=== PATIENT | male | born 1980 | race Caucasian/White ===

== ENCOUNTER 2024-07-11 12:26 | Outpatient (CLI) | payer BC, SELFPAY ==
[2024-07-11 12:54] LABS: Basophils Absolute Auto 0.07 K/uL (0.00-0.30); Basophils Percent Auto 1.3 % (0.0-3.0); Eosinophils Absolute Auto 0.25 K/uL (0.00-0.50); Eosinophils Percent Auto 4.6 % (0.0-7.0); Hematocrit 45.4 % (37.0-53.0); Hemoglobin* 15.4 gm/dL (13.5-17.5); Lymphocytes Absolute Auto 1.62 K/uL (0.90-2.90); Lymphocytes Percent Auto 29.9 % (20-44); Mean Corpuscular HGB Conc 34 gm/dL (32-36); Mean Corpuscular Hemoglobin 32 pg (26-34); Mean Corpuscular Volume 94 fL (80-100); Monocytes Percent Auto 8.5 % (0.0-11.0); Neutrophils Absolute Auto 3.02 K/uL (1.7-7.0); Neutrophils Percent Auto 55.7 % (42.0-72.0); Platelet Count* 219 K/uL (140-440); RDW Coefficient of Variation % 12.3 % (11.5-15.5); Red Blood Count 4.85 m/uL (4.30-5.90); Slide Review Reflex No; White Blood Count* 5.42 K/uL (4.50-11.00)
[2024-07-11 13:11] LABS: Albumin* 4.4 g/dL (3.3-5.0)
[2024-07-11 13:13] LABS: Bilirubin Direct* 0.1 mg/dL (0.0-0.5); Bilirubin Total* 0.5 mg/dL (0.1-1.5); Total Protein* 6.8 g/dL (6.0-8.3)
[2024-07-11 13:14] LABS: Alanine Aminotransferase* 18 U/L (4-50); Alkaline Phosphatase* 71 U/L (40-150); Aspartate Amino Transferase* 24 U/L (12-35)
[2024-07-11 13:45] LABS: PSA Screen* 0.51 ng/mL (0.10-4.00)
== END 2024-07-11 12:27 | disposition home or self-care (01) ==
PROVIDERS: PCP Family Medicine; Visit Provider Urology
DX: E29.1 Testicular hypofunction (principal)
CPT/HCPCS: 36415; 80076; 85025; G0103

== ENCOUNTER 2024-07-21 14:21 | Outpatient (CLI) | payer BC, SELFPAY ==
[2024-07-21 16:02] LABS: Vitamin D 25 Hydroxy* 33 ng/mL (30-80)
[2024-07-21 16:35] LABS: Vitamin B12* 302 pg/mL (243-894)
== END 2024-07-21 14:22 | disposition home or self-care (01) ==
PROVIDERS: PCP Family Medicine; Visit Provider Family Medicine
DX: E53.8 Deficiency of other specified B group vitamins (principal)
CPT/HCPCS: 36415; 82306; 82607

== ENCOUNTER 2024-08-04 11:05 | Outpatient (CLI) | payer BC, SELFPAY ==
[2024-08-06 09:46] LABS: Sex Hormone Binding Globulin 25 nmol/L (17-56); Testosterone, Adult Male 131 ng/dL (300-890); Testosterone, Free Calculation 26 pg/mL (47-244)
== END 2024-08-04 11:06 | disposition home or self-care (01) ==
PROVIDERS: PCP Family Medicine; Visit Provider Urology
DX: E29.1 Testicular hypofunction (principal)
CPT/HCPCS: 36415; 84270; 84402; 84403

== ENCOUNTER 2024-12-21 10:07 | Outpatient (CLI) | payer BC, SELFPAY ==
--- NOTE | 2024-12-21 10:15 | CRLHL7_ITS ---
For Patients: As a result of the Century Cures Act, medical imaging exams and procedure reports are released immediately into your electronic medical record. You may view this report before your referring provider. If you have questions, please contact your health care provider. INDICATION: Dysphagia with swallowing solids HX OF HATIAL HERNIA TECHNIQUE: Modified barium swallow. Fluoroscopic time 54 seconds. FINDINGS/IMPRESSION: Anatomical structures are normal. Swallowing mechanism appears within normal limits. No episodes of penetration or aspiration. No significant findings. Dictated by Elijah Lanza MD @ 12/21/2024 10:57:57 AM (Electronically Signed)
--- NOTE | 2024-12-21 14:36 | SLP.MBS ---
NUCLEAR WASTE MANAGEMENT ENGINEER Modified Barium Swallow NUCLEAR WASTE MANAGEMENT ENGINEER Modified Barium Swallow Eval Start: 12/21/24 08:30 Text: Status: Active Freq: Protocol: Document 12/21/24 08:30 ALIREZA (Rec: 12/21/24 08:38 ALIREZA [id number]) E-signed By LEO Dawson Modified Barium Swallow Evaluation Evaluation Reason for Referral Sore throat with eating solids but not with liquids. Medical Diagnosis R13.10 dysphagia, unspecified Treatment Diagnosis Dysphagia Date of Order 12/09/24 Onset of Patient's 12/09/24 Problem Pertinent Medical Jan has a history of GERD and hiatal hernia that was History diagnosed in 2012. He had a CT of the soft tissue of the neck in September of 2023 which was WNL. Hearing Status WNL Vision Status WNL Subjective/Pain In early December, Jan developed a persistent sore throat Comment that he feels was based on a few distinct incidents: 1) food lodged in throat, 2) singing and had sudden pain. Assessment/ Jan is a 44-year-old male with complaints of throat Impressions pain when swallowing. He has a history of GERD and hiatal hernia. A video swallow study was completed per provider orders. Under fluoroscopy, patient presents with a functional oropharyngeal swallow. Oral phase functional with occasional double swallow needed to transport entire bolus but there was no oral residue after second swallow. Pharyngeal phase is also functional but noted partial anterior laryngeal movement and incomplete epiglottic inversion with one instance of minimal flash penetration. No aspiration. Recommend a Regular diet with thin liquids. Safe swallow strategies include upright for all meals, small bites and sips. Reflux precautions include stay upright for one hour after meals, smaller more frequent meals, eat last meal three hours before bedtime, elevate head of bed 4-6 inches. Despite a functional swallow, did offer Jan pharyngeal exercises that he could complete to focus on improving BOT retraction, anterior laryngeal movement and epiglottic inversion. His current swallow does not account for the pain he continues to feel while he swallows, clears his throat or coughs and would recommend an ENT consult to further assess these issues. Goals/Functional Jan will verbalize understanding of today's results Outcomes and recommendations. Goal met today. Mod Barium Swallow-Lat View Textures Lateral View Food Thin: IDDSI Level 0,Pureed,Regular Presentation Oral Phase Labial Closure No Impairment (WFL) Mastication Rotary No Impairment (WFL) Chew A/P Lingual No Impairment (WFL) Propulsion Spills Residue Clearing No Impairment (WFL) Pharyngeal Phase Swallow Response No Impairment (WFL) Delay Base of Tongue Minimal Impairment Epiglottic Coverage Mild Impairment Laryngeal Elevation Mild Impairment Vallecular Retention No Impairment (WFL) Clearing Pharyn. Wall Residue No Impairment (WFL) Clearing Piriform Sinus No Impairment (WFL) Retention Other Pharyngeal Incomplete epiglottic inversion causing minimal Phase Observation vallecular residue that was cleared after a second swallow. Mod Barium Swallow-A/P View Performed Mod Barium Swallow A Performed /P View Test Textures A/P View Food Thin: IDDSI Level 0 Presentation Observations A/P View Esophogeal No Impairment (WFL) Function Mod Barium Swallow Impressions Summary and Impressions Oral Phase No Impairment (WFL) Impression Pharyngeal Phase Minimal Impairment Impression Esophogeal Phase No Impairment (WFL) Impression Barium Swallow Recommendations Diet Dietary Regular diet with thin liquids. Recommendations Comments Treatment/Strategies Treatment Base of Tongue Exercises,Pharyngeal Resistive Exer Recommendation Treatment Jan was given exercises to complete if he chooses. Recommendation Comments Strategy/Precaution Sitting Upright (90 deg),Small Bites and Sips,Alternate Recommend Liquids/Solids Strategy/Precaution Reflux precautions include stay upright for one hour Recommend Comments after meals, smaller more frequent meals, eat last meal three hours before bedtime, elevate head of bed 4-6 inches. Referrals/Other Recommended ENT Consult Referrals Modified Barium Swallow Education Education Topics Teaching Recipient Patient Teaching Methods Verbal Response to Teaching Verbalize Understanding Therapist Signature/ Vahe Lowe MS [facility]-NUCLEAR WASTE MANAGEMENT ENGINEER #[id number] License Number Speech/Language Pathology Billing Units Billing Units Eval Swallow Motion 1 Fluoro
== END 2024-12-21 10:08 | disposition home or self-care (01) ==
PROVIDERS: PCP Family Medicine; Visit Provider Family Medicine
DX: R13.10 Dysphagia, unspecified (principal)
CPT/HCPCS: 74230; 92610; 92611

== ENCOUNTER 2024-12-26 09:29 | Outpatient (CLI) | payer BC, SELFPAY ==
--- OUTSIDE RECORDS SUMMARY | 2024-12-27 00:37 | XMS_ITS | Clinical Summary ---
Author Organization [facility] Address [address] [place] [id number] Care Team Providers Care Founder And Chief Technical Officer Name Role Phone Sindy Coates MD Primary Care Pr ovider Source Comments You are receiving this document as you are listed as the primary care provider,follow-up provider, or the patient has been referred to you for consultation.This is in compliance with the Medicare andMedicaid EHR Incentive Program,which states Providers who transition their patient to another setting of careor provider of care or refers their patient to another provider of care shouldprovide summary care record for each transition of care or referral. [employer] Allergies Active Allergy Reactions Criticality Noted Date Comments Penicillin V Other, see comments 02/08/2019 Pt had as a child, not sure of reaction, not sure if he has had it since Penicillins Unknown,Other, see comments 05/04/2009 Childhood reaction Other reaction(s): Other (see comments) Childhood reaction Other reaction(s): Other (see comments) Childhood reaction Other reaction(s): Other (see comments) Childhood reaction Other reaction(s): Other (see comments) Pt had as a child, not sure of reaction, not sure if he has had it since Childhood reaction Other reaction(s): Other (see comments) Childhood reaction Other reaction(s): Other (see comments) Medications sildenafil (REVATIO) 20 MG tablet Take 1 Tablet by mouth three times a day. 90 Tablet 5 05/09/2021 Active NIFEdipine CC (ADALATCC) 30 MG 24 hour release tablet Take 1 Tablet by mouth daily. 30 Tablet 3 06/03/2021 Active sildenafil (REVATIO) 20 MG tablet Take 1 Tablet by mouth daily. 10 Tablet 06/03/2021 Active Active Problems Problem Noted Date Diagnosed Date Vasospasm of peripheral artery 01/04/2021 Open wound of right index finger 12/14/2020 Open wound of right middle finger 12/14/2020 Stiffness of finger joint of right hand 12/15/19 21 Ischemia of digits of hand 11/22/2020 DNS (deviated nasal septum) 03/02/2018 Overview (03/02/2018): Added automatically from request for surgery [id number] Anxiety disorder Depression Immunizations Immunization Administration Dates Next Due Flu Vac (3+ yrs) 08/12/2017,04/26/2015, 3 [id number] 06/08/2009 Influenza [id number] 06/08/2009 Influenza IIV4 (Quadrivalent) 0.5mL ([id number]) 03/07,04/26/2015,05/17/2014 Influenza, Unspecified Formulation 04/26/2015 Moderna Monovalent 12+ 11/08/2020,10/03/2020 Td (7+ yrs) 02/02/2010 Family History Medical History Relation Name Comments Diabetes Mother Heart Attack Maternal Grandfather Cancer, Prostate Paternal Grandfather Cancer, Ovary Paternal Grandmother Relation Name Status Comments Mother Maternal Grandfather Paternal Grandfather Paternal Grandmother Social History Tobacco Use Types Packs/Day Years Used Date Smoking Tobacco: Never Smokeless Tobacco: Never Alcohol Use Standard Drinks/Week Comments Not Currently 0 (1 standard drink = 0.6 oz pur e alcohol) Sex and Gender Information Value Date Recorded Sex Assigned at Not on file Legal Sex Male 5:53 AM CDT Gender Identity Not on file Sexual Orientation Not on file Last Filed Vital Signs Vital Sign Reading Time Taken Comments Blood Pressure 120/73 06/03/2021 8:23 AM GREEN BUILDING ENGINEER Pulse 54 06/03/2021 8:23 AM GREEN BUILDING ENGINEER Temperature 36.7 C (98 F) 08/31/2022 12:18 PM GREEN BUILDING ENGINEER Respiratory Rate 20 11/27/2020 2:29 PM CDT Oxygen Saturation 100% 12/14/2020 1:18 PM CDT Inhaled Oxygen Concentration - - Weight 81.6 kg (180 lb) 08/31/2022 12:18 PM GREEN BUILDING ENGINEER Height 185.4 cm (6' 1) 08/31/2022 12:18 PM GREEN BUILDING ENGINEER Body Mass Index 23.75 08/31/2022 12:18 PM GREEN BUILDING ENGINEER Plan of Treatment Health Maintenance Due Date Last Done Comments HIV Screening (Preventive Services) 1996 Adult Preventive Visit 02/12/1998 HepB Vaccine (1) 02/12/1999 Cholesterol 02/12/2015 COVID-19 Vaccine ( season) 2024 06/23/2022, 05/27/2021, 11/08/2020, Additional history exists Influenza Vaccine (Season Ended) 2025 06/23/2022, 03/27/2020, 08/12/2017, Additional history exists Zoster/Shingles Vaccine (1 of 2) 02/12/2030 DTaP/Tdap/Td Vaccine (2 - Tdap) 12/18/2031 12/17/2021, 02/02/2010 Hep C Screening (Preventive Services) Completed 12/31/2020 HPV Vaccine Aged Out No longer eligi ble based on patient's age to complete this topic HepA Vaccine Aged Out No longer eligi ble based on patient's age to complete this topic Hib Vaccine Aged Out No longer eligi ble based on patient's age to complete this topic IPV (Polio) Vaccine Aged Out No longe r eligible based on patient's age to complete this topic MCV4 Vaccine Aged Out No longer eligi ble based on patient's age to complete this topic Meningococcal B Vaccine Aged Out No l onger eligible based on patient's age to complete this topic Pneumococcal Vaccine Aged Out No long er eligible based on patient's age to complete this topic Medical Devices Implanted Type Area Break Up Worker Device Identifier Shelf Expiration Date Model / Serial / Lot Costal Cartilage Implanted:Qty: 1 on 02/08/2019 by Erik Avilez MD at [facility] BIOLOGIC N/A: NOSE 04/20/2022 1216-25 / [id number] / [id number] - [id number] Implanted:Qty: 1 on 02/08/2019 by Erik Avilez MD at [facility] DEVICE N/A: NOSE [employer] 10/12/2023 -[id number] / / [id number] Procedures Procedure Name Priority Date/Time Associated Diagnosis Comments HEPATITIS C ANTIBODY, WITH REFLEX (ANTI-HCV) Routine 12/31/2020 11:25 AM CDT Raynaud's disease with gangrene (HRC) from Last 3 Months or Most Recently Relevant to Health Maintenance Results * Hepatitis C Antibody, with Reflex (12/31/2020 11:25 AM CDT) Hepatitis C Antibody Negative (Non Reactive) Negative (Non Reactive) 12/31/2020 2:40 PM CDT [facility] Comment:Antibodies to HCV no t detected. Does not exclude the possiblity of exposure to HCV. Blood Venipuncture / Unknown 12/31/2020 11:25 AM CDT 12/31/2020 11:25 AM CDT us Rahul Beltrán MD LAB_[email or web address] Final Result Performing Organization Address City/State/[facility] Co de Phone Number [facility] [address] [phone] from Last 3 Months or Most Recently Relevant to Health Maintenance Advance Directives * Full Code (Latest Code Status on File) Date Activated Date Inactivated Comments 11/22/2020 10:13 PM 11/27/2020 7:01 PM Care Teams Founder And Chief Technical Officer Relationship Specialty Start Date End Date Sindy Coates MD [address] [place] [address] PCP - General 03/06/16
--- OUTSIDE RECORDS SUMMARY | 2024-12-27 00:37 | XMS_ITS | Clinical Summary ---
Author Organization [facility] Address [address] [place] [address] Care Team Providers Care Electronic System Engineer Name Role Phone Nina Winters DO Primary Care Provider [phone] Allergies Active Allergy Reactions Criticality Noted Date Comments Animal Dander Other - Describe In Comment Field 06/18/2009 Congestion Penicillins Other - Describe In Comment Field,*Unknown - Childhood Rxn 05/04/2009 Pt had as a child, not sure of reaction, not sure if he has had it since Medications desvenlafaxine succinate (PRISTIQ) 50 mg Extended-Release tabletIndication s:Generalized anxiety disorder,Persist ent depressive disorder,Chronic generalized pain TAKE 1 TABLET (50 MG) BY MOUTH ONCE DAILY. 90 Tablet 3 4 Active clomiPHENE citrate (Clomid) 50 mg tablet Take 50 mg by mouth once daily. Active cetirizine (ZYRTEC) 10 mg tabletIndication s:Pruritus Take 1 Tablet (10 mg) by mouth once daily. 90 Tablet 3 5 Active pantoprazole 40 mg delayed-release tabletIndication s:Chronic GERD Take 1 Tablet (40 mg) by mouth once daily. 90 Tablet 3 5 10/21/19 26 Active montelukast 10 mg tabletIndication s:Chronic allergic rhinitis Take 1 Tablet (10 mg) by mouth at bedtime. 90 Tablet 3 5 Active hydrocortisone 2.5 % creamIndications :Contact dermatitis, unspecified contact dermatitis type, unspecified trigger Apply topically to affected area(s) 2 times daily if needed for Itching. 453.6 g 5 Active triamcinolone (55 mcg each actuation) nasal (Nasacort) 55 mcg nasal sprayIndications :Nasal congestion,Nasal turbinate hypertrophy Inhale 2 Sprays in both nostrils once daily. 16.9 mL 5 Active desvenlafaxine succinate 25 mg extended release tabletIndication s:Generalized anxiety disorder Take 1 Tablet (25 mg) by mouth once daily. Do not crush or chew. To be taken with 50 mg tablet to total 75 mg. 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 and with good or fair insight 12/19/2021 SVT (supraventricular tachycardia) 09/27/2021 Complication of procedure 04/09/2021 POTS (postural orthostatic tachycardia syndrome) 04/09/2021 Vasospasm of peripheral artery 01/04/2021 Open wound of right index finger 12/14/2020 Open wound of right middle finger 12/14/2020 Stiffness of finger joint of right hand 12/15/19 21 Ischemia of digits of hand 11/22/2020 Essential tremor 12/11/2019 Elevated serum creatinine 06/23/2018 DNS (deviated nasal septum) 03/02/2018 Overview (03/27/2020): Overview: Added automatically from request for surgery [id number] Persistent depressive disorder 01/14/2018 Somatic symptom disorder 12/31/2017 Chronic insomnia 09/15/2017 Generalized anxiety disorder : Illness anxiety and body vigilance 09/15/2017 Low testosterone 11/24/2016 Obstructive sleep apnea syndrome 11/19/2016 Overview (11/19/2016): On CPAP Osteoarthritis of right knee, medial compartment 10/06/2016 GERD (gastroesophageal reflux disease) 3 Overview (09/28/2024): EGD 03/2013 normal EGD 09/2024 esophagitis with ulcer S/P right knee arthroscopic partial medial menisectomy of 35% by Dr. Krys Garcia on 2012 02/23/2012 Panic disorder with agoraphobia 01/16/2010 WPW (Reucn-Oyfwkgysq-Wonar syndrome) 05/31/2008 Overview (01/31/2019): EP study 08/07/14 shows no accessory pathway. 1. Ucsfb-Zxwoqnnip-Xhdfx syndrome with bidirectional conduction over an anterolateral accessory pathway with radiofrequency ablation performed initially in 1993, and then once again in 1996. He subsequently was placed on flecainide until recently as described above. 2. Diagnostic electrophysiology study 08/07/2014 showing no evidence for an accessory pathway, dual AV lydia physiology, or an inducible arrhythmia despite high-dose isoproterenol and aggressive induction protocol. 1&[address] Douglass. Patient reports Dr. Enrique told him no follow up was necessary unless he develops a problem. History of Sinus Bradycardia with 1st degree AV block 05/29/2008 Resolved Problems Problem Noted Date Diagnosed Date Resolved Date Raynaud's disease with gangrene 09/27/2021 08/04/2023 Generalized anxiety disorder 12/29/2017 11/21/2021 Major depressive disorder, r ecurrent, moderate 12/15/2017 12/19/2021 Acute meniscal tear, medial 02/03/2012 05/17/2014 Knee pain, right 02/02/2012 05/17/2014 Rule out Obsessive-Compulsive Disorder 10/31/2008 12/19/2021 Recur Major Depre, Part Remis 10/19/2008 07/07/2014 Major depression, recurrent 06/02/2008 10/31/2008 Episodic mood disorder 05/09/200806/02 Encounters Date Type Department Care Team Description 12/26/2024 2:10 PM CDT Office Visit [facility] [address] [place] [address] Nina Winters, DO Follow Up (Throat, swallow test results); Medication Management 12/26/2024 Travel 12/09/2024 11:25 AM CDT Office Visit [facility] [address] [place] [address] Nina Winters, DO Throat Problem (Sore throat/felt happened after eating - feels sensation when eating, not drinking) 12/09/2024 Travel 11/07/2024 2:10 PM CDT Office Visit [facility] [address] [place] [address] Nina Winters, Follow Up; Derm Problem (Rashes continue to come up on/off - eczema? ); Foot Problem (L top of foot - burning pain/sensation) 11/07/2024 Travel 10/11/2024 3:00 PM CDT Office Visit [facility] [address] [place] [address] Nina Winters, DO Medication Management (Review); Chest Pain/problem (R pectoral pain x2-3 days) 10/10/2024 Travel 10/04/2024 Orders Only [facility] [address] [place] [address] Nina Winters, DO 1 scan: (1-Ord) NFLD-EKG-09/23/24 from Last 3 Months Immunizations Immunization Administration Dates Next Due COVID-19 vaccine (Moderna 100mcg/0.5mL) SHARLENE PATRICK 11/08/2020,10/03/2020 Influenza A (H1N1), Inactiva colin (Age >=3 Years) 06/08/2009 Influenza Virus, Unspecified 08/12/2017,04/26/20 15,04/26/2015 Influenza, IIV3 (Age >=3 years) 04/26/2015,07/15 Influenza, IIV4 06/16/2023, 2,03/27/2020,2014,05/17/2014 Td (Age >=7 Years) 02/02/2010 Tdap 12/17/2021 Family History Medical History Relation Name Comments Coronary artery disease Father gloria GI Disease Father gloria diverticulosis Heart Disease Father gloria age 60 Hyperlipidemia Father gloria Allergies Mother mom Anxiety disorder Mother mom Asthma Mother mom Diabetes Mother mom Hyperlipidemia Mother mom Hypertension Mother mom Psychiatric illness Mother mom depressi on and anxiety Lupus Paternal Grandmother stef Hypertension Sister 1 joby p OCD Sister 1 joby p Thyroid Disease Sister 1 joby p Anxiety disorder Sister 2 joby Depression Sister 2 joby OCD Sister 2 joby Relation Name Status Comments Father gloria Alive Mother mom Alive Paternal Grandmother stef Alive Sister 1 joby p Alive Sister 2 joby Other Social History Tobacco Use Types Packs/Day Years Used Date Smoking Tobacco: Never Passive Smoke Exposure: Never Smokeless Tobacco: Never Tobacco Cessation:Counseling Given: Not Answered Alcohol Use Standard Drinks/Week Comments No 0 (1 standard drink = 0.6 oz pur e alcohol) PHQ-2 Answer Date Recorded PHQ-2 TOTAL SCORE 2 12/26/2024 Social Connections Answer Date Recorded Do you often feel lonely or isolated from those around you? 0 12/26/2024 Alcohol Use Answer Date Recorded How often do you have a drink containing alcohol ? 0 11/21/2021 Average Number of Drinks Not on file 022 Frequency of Binge Drinking Not on file 11/03 Financial Resource Strain Answer Date R ecorded Difficulty of Paying Living Expenses 3 12/26/2024 Difficulty of Paying Living Expenses Not on file 12/26/2024 Food Insecurity Answer Date Recorded Do you worry your food will run out before you are able to buy more? 1 12/26/2024 Transportation Needs Answer Date Record ed Does lack of transportation keep you from medica l appointments? 1 12/26/2024 Does lack of transportation keep you from work, meetings or getting things that you need? 1 12/26/2024 Housing Stability Answer Date Recorded What is your housing situation today? 1 12/26/2024 Utilities Answer Date Recorded Do you have trouble paying f or utilities (for example, heat, electricity, water, phone)? 1 12/26/2024 Education Answer Date Recorded What is the highest level of school you have completed or the highest degree you have received? Bachelor's degree (e.g., BA, AB, BS) 11/21/2021 Sex and Gender Information Value Date Recorded Sex Assigned at Not on file Legal Sex Male 5:24 AM CASE PLANNER Gender Identity Not on file Sexual Orientation Not on file Occupation Industry Job Start Date Job End Date Unemployed Not on file Not on file Not on file Obstetrics History Last Filed Vital Signs Vital Sign Reading Time Taken Comments Blood Pressure 121/80 12/26/2024 2:16 PM CDT Pulse 76 12/26/2024 2:16 PM CDT Temperature 37.2 C (99 F) 08/02/2024 1:53 PM CASE PLANNER Respiratory Rate 18 08/02/2024 1:53 PM CASE PLANNER Oxygen Saturation 97% 12/26/2024 2:16 PM CDT Inhaled Oxygen Concentration - - Weight 88.9 kg (196 lb) 12/26/2024 2:16 PM CDT Height 186.5 cm (6' 1.43) 05/09/2024 2:04 PM CS T Body Mass Index 25.56 05/09/2024 2:04 PM CASE PLANNER Plan of Treatment Upcoming Encounters Date Type Department Care Team (Late st Contact Info) Description 01/23/2025 2:10 PM CDT Office Visit [facility] [address] [place] [address] Nina Winters Stefani, DO [address] [place] [address] Health Maintenance Due Date Last Done Comments Hepatitis B series for 19+ ( 1 of 3 - 19+ 3-dose series) 02/12/1999 Pneumococcal series for age 6-49 (1 of 2 - PCV) 02/12/1999 Influenza Vaccine (Season Ended) 2025 06/16/2023, 06/23/2022, 03/27/2020, Additional history exists BMI (ht and wt on same day) for age 18+ 05/09/2025 05/09/2024, 09/09/2023, 09/10/2022, Additional history exists Lipids for age 35-44 09/10/2025 09/10/2020, 01/31/2019, 11/19/2016 Depression screening for age 12+ 12/26/2025 12/26/2024, 10/11/2024, 09/13/2024, Additional history exists Colonoscopy through age 75 09/21/2029 09/21/2024 Tetanus booster 12/18/2031 12/17/2021, 02/02/2010 HIV for age 15-65 Completed 05/17/2014 Hepatitis C screening for ag e 18-79 Completed 05/26/2014 Tdap Completed 12/17/2021 COVID-19 vaccine series Completed 06/06/20 24, 06/16/2023, 06/23/2022, Additional history exists Procedures Procedure Name Priority Date/Time Associated Diagnosis Comments EKG 12 LEAD Routine 10/04/2024 2:12 PM CDT Mid sternal chest pain COLONOSCOPY SCREENING Routine 09/21/2024 12:00 AM CDT Screening for colon cancer LIPID PANEL W REFLEX MEASURED LDL Routine 09/10/2020 3:28 PM CASE PLANNER Lipid screening ANTI HCV Routine 05/26/2014 11:54 AM CASE PLANNER Hypersomnia, unspecified Anxiety state, unspecified Headache(784.0) Dizziness and giddiness Disturbance of skin sensation ANTI HIV 1/2 Routine 05/17/2014 3:24 PM CASE PLANNER Paresthesias from Last 3 Months or Most Recently Relevant to Health Maintenance Results * EKG 12 LEAD (10/04/2024 2:12 PM CDT) us Nina Stefani Shaqra DO EKG ORD Final Result * COLONOSCOPY SCREENING (09/21/2024 12:00 AM CDT) us Nina Stefani Shaqra DO GI PROCEDURE ORD Final Result * LIPID PANEL W REFLEX MEASURED LDL (09/10/2020 3:28 PM CASE PLANNER) CHOLESTEROL,TOTAL 177 100 - 199 mg/dL 09/10/2020 8:48 PM CASE PLANNER [facility] TRIGLYCERIDES 103 <150 mg/dL 09/10/2020 8:48 PM CASE PLANNER [facility] HDL CHOLESTEROL 52 >40 mg/dL 8:48 PM CASE PLANNER [facility] NON-HDL CHOLESTEROL 125 <145 mg/dl 09/10/2020 8:48 PM CASE PLANNER [facility] CHOL/HDL RATIO 3.40 <4.50 09/10/2020 8:48 PM CASE PLANNER [facility] LDL CHOLESTEROL 104 <=130 mg/dL 09/10/2020 8:48 PM CASE PLANNER [facility] PROVIDER ORDERED STATUS RANDOM 09/10/2020 8:48 PM CASE PLANNER [facility] Blood BLOOD SPECIMEN / Unknown Venipuncture / Unknown 09/10/2020 3:28 PM CASE PLANNER 09/10/2020 3:28 PM CASE PLANNER Osbaldo Degroot MD CHEMISTRY Final Resu lt [facility] [address] [place] [address], [place] * ANTI HCV (05/26/2014 11:54 AM CASE PLANNER) HEPATITIS C ANTIBODY Non-Reacti ve Non-Reacti ve 05/26/2014 5:00 PM CASE PLANNER [facility] Blood specimen (specimen) BLOOD SPECIMEN / Unknown Venipuncture / Unknown 05/26/2014 11:54 AM CASE PLANNER 05/26/2014 11:54 AM CASE PLANNER Narrative [facility] - 05/26/2014 5:00 PM CASE PLANNER Antibodies to HCV not detected; does not exclude the possibility of exposure to HCV. Jazmine Restrepo MD SEND OUTS Final Result [facility] [address] [place] [address], [place] * ANTI HIV 1/2 (05/17/2014 3:24 PM CASE PLANNER) HIV-1/HIV-2 ANTIBODY Non-Reacti ve Non-Reacti ve 05/17/2014 7:08 PM CASE PLANNER [facility] Blood specimen (specimen) BLOOD SPECIMEN / Unknown Venipuncture / Unknown 05/17/2014 3:24 PM CASE PLANNER 05/17/2014 3:24 PM CASE PLANNER Narrative [facility] - 05/17/2014 7:08 PM CASE PLANNER HIV-1 p24 and HIV-1/HIV-2 Ab not detected us Leanne Garrett MD SEND OUTS Final Re sult [facility] [address] [place] [address], [place] from Last 3 Months or Most Recently Relevant to Health Maintenance Insurance [facility] Advance Directives * Full Code (Latest Code Status on File) Date Activated Date Inactivated Comments 08/07/2014 6:39 AM 08/07/2014 3:58 PM Care Teams Electronic System Engineer Relationship Specialty Start Date End Date Nina [place] [address] PCP - General Family Practice 06/02/22
--- OUTSIDE RECORDS SUMMARY | 2024-12-27 00:37 | XMS_ITS | Encounter Summary ---
Author [facility] Address [address] [place] [address] Care Team Providers Care Sugar Mixer Name Role Phone Sindy Coates MD Primary Care Pr ovider Encounter Details Date Type Department Care Team (Late st Contact Info) Description 02/08/2019 Consent for Procedure/Treatme nt [facility] INFORMED CONSENT RECORD Social History Tobacco Use Types Packs/Day Years Used Date Smoking Tobacco: Never Smokeless Tobacco: Never Alcohol Use Standard Drinks/Week Comments Yes 0 (1 standard drink = 0.6 oz pure alcohol) drinks per week 1 per new pt jane hx form09/29/17 Sex and Gender Information Value Date Recorded Sex Assigned at Not on file Legal Sex Male 5:53 AM CDT Gender Identity Not on file Sexual Orientation Not on file documented as of this encounter Plan of Treatment Not on file documented as of this encounter Visit Diagnoses Not on filedocumented in this encounter Care Teams Sugar Mixer Relationship Specialty Start Date End Date Sindy Coates MD [address] [place] [address] PCP - General 03/06/16 documented as of this encounter
--- OUTSIDE RECORDS SUMMARY | 2024-12-27 00:37 | XMS_ITS | Clinical Summary ---
Author Organization [facility] Address [address] [place] [address] Care Team Providers Care Bank Clerk Name Role Phone Tonio Lock MD Unavailable [phone] Pilo Hansen MD Unavailable Nina Winters DO Primary Care Provider [phone] Allergies Active Allergy Reactions Criticality Noted Date Comments Animal Dander Other (See Comments) 06/18/2009 Congestion Congestion Penicillins Other (See Comments) 05/04/2009 Childhood reaction Other reaction(s): Other (see comments) Childhood reaction Other reaction(s): Other (see comments) Medications * This document contains information received from the source organization and may not represent a complete record from that organization. CLOMID 50 MG tablet Take 1 tablet by mouth daily. Active desvenlafaxine (PRISTIQ) 50 MG 24 hr tablet Take 1 tablet by mouth daily. 06/03/2024 Active cetirizine (ZYRTEC) 10 MG tablet Take 1 tablet by mouth daily. 07/18/2024 Active Active Problems Problem Noted Date Diagnosed Date Osteoarthritis of left knee 07/15/2023 Trauma and stressor-related disorder 01/02/2022 Paroxysmal SVT (supraventricular tachycardia) POTS (postural orthostatic tachycardia syndrome) 04/09/2021 Persistent depressive disorder 01/14/2018 Low testosterone 11/24/2016 Family History Medical History Relation Comments Coronary Artery Disease Father Diabetes Mother Hypertension Mother Cerebrovascular Disease No family hx of Relation Status Comments Father Mother Social History Tobacco Use Types Packs/Day Years Used Date Smoking Tobacco: Never Smokeless Tobacco: Never Alcohol Use Standard Drinks/Week Comments No 0 (1 standard drink = 0.6 oz pur e alcohol) PHQ-2 Answer Date Recorded PHQ-2 Score 4 06/09/2023 Adolescent Education Answer Date Record ed Getting School Help Needed Not on file 04/09 Sex and Gender Information Value Date Recorded Sex Assigned at Not on file Legal Sex Male 3:09 AM MUD JACK NOZZLE WORKER Gender Identity Not on file Sexual Orientation Not on file Last Filed Vital Signs Vital Sign Reading Time Taken Comments Blood Pressure 118/80 09/01/2024 1:48 PM MUD JACK NOZZLE WORKER Pulse 52 09/01/2024 1:48 PM MUD JACK NOZZLE WORKER Temperature 35.7 C (96.3 F) 07/26/2018 3:12 PM MUD JACK NOZZLE WORKER Respiratory Rate 14 07/26/2018 3:12 PM MUD JACK NOZZLE WORKER Oxygen Saturation 98% 06/09/2023 12:58 PM MUD JACK NOZZLE WORKER Inhaled Oxygen Concentration - - Weight 89.9 kg (198 lb 3.2 oz) 09/01/2024 1:48 P M MUD JACK NOZZLE WORKER Height 185.4 cm (6' 1) 09/01/2024 1:48 PM MUD JACK NOZZLE WORKER Body Mass Index 26.15 09/01/2024 1:48 PM MUD JACK NOZZLE WORKER Plan of Treatment Health Maintenance Due Date Last Done Comments ADVANCE CARE PLANNING 1980 ANNUAL REVIEW OF HM ORDERS 1980 DEPRESSION ACTION PLAN 1980 DIABETES SCREENING 1980 YEARLY PREVENTIVE VISIT 02/12/1983 HEPATITIS B VACCINE (1 of 3 - 19+ 3-dose series) 02/12/1999 LIPID 2020 PHQ-9 12/09/2023 06/09/2023 ZOSTER VACCINE (1 of 2) 02/12/2030 DTAP/TDAP/TD VACCINE (2 - Td or Tdap) 12/18/2031 12/17/2021, 02/02/2010 HIV SCREENING Completed 05/17/2014 HEPATITIS C SCREENING Completed 12/31/2020, 014 COVID-19 VACCINE Completed 06/06/2024, 06/2023, 06/23/2022, Additional history exists INFLUENZA VACCINE Completed 06/06/2024, , 06/23/2022, Additional history exists HPV VACCINE Aged Out No longer eligi ble based on patient's age to complete this topic MENINGITIS VACCINE Aged Out No longer eligible based on patient's age to complete this topic PNEUMOCOCCAL VACCINE: PEDIATRICS (0 to 5 YEARS) AND AT-RISK PATIENTS (6 to 49 YEARS) Aged Out No longer eligible based on patient's age to complete this topic Insurance [employer] [place] [employer] [place] Care Teams Bank Clerk Relationship Specialty Start Date End Date Nina Winters DO [address] [place] [address] PCP - General 06/09/23 Tonio Lock MD Internal Medicine 01/03/19 Pilo Hansen MD [address] [place] [address] Resident 01/29/23
--- OUTSIDE RECORDS SUMMARY | 2024-12-27 00:38 | XMS_ITS | Patient Health Record ---
Author Organization [facility] Address [address] [place] [address] Care Team Providers Care Outdoor Education Teacher Name Role Phone Osbaldo Degroot Primary Care Provider LIZA Wilson Unavailable [phone] None, None Unavailable Unavailable Reason For Referral No Information Medications Medication SIG (Take, Route, Fr equency, Duration) Notes Start Date End Date Status Cymbalta tapering off Active Social History Tobacco Use: Social History Observation Description Date Details (start date - stop date) Never Smoker NA - NA Social History Alcohol Use: Social Info Question Answer Notes Recreational drugs Recreational Drug Use: No Alcohol Screen Did you have a drink containing alcohol in the past year? Yes How often did you have 6 or more drinks on one occasion in the past year? Never (0 point) How many drinks did you have on a typical day when you were drinking in the past year? 1 or 2 drinks (0 point) How often did you have a drink containing alcohol in the past year? Monthly or less (1 point) Tobacco Use: Social Info Question Answer Notes Tobacco use/smoking Are you a nonsmoker Additional Details Category Social Info Options Details Household: Occupation [employer] Problems Problem Type SNOMED Code ICD Code Onset Dates Problem Status W/U Status Risk Notes Problem Anxiety (78125395) Anxiety (F41.9) Active confirmed Problem Bruxism (disorder) (908398481) Bruxism (teeth grinding) (F45.8) Active confirmed Problem Dizziness and giddiness (772711510) Persistent postural-percep tual dizziness (R42) Active confirmed Problem Occipital neuralgia (78659642) Bilateral occipital neuralgia (M54.81) Active confirmed Plan Of Treatment No Information Insurance Providers Payer Name Payer Address Payer Phone Subscriber Number Group Number Insured Name Patient Relationship to Insured Coverage Start Date Coverage End Date Harini Christiano MITCHELL prior to 2023 [address] [address] [place], [place] [id number] [facility] [employer] Jan Bass Self - patient is the insured Medical (General) History Medical History History ICD Code Conditions/Illness:: Sleep apnea Other Medical problems:: dys autonomia (?)generalized anxiety disorderpanic disorderdepression somatic symptom disorder Surgical History Surgery Date(Month/Year) inguinal hernia 1980 myringotomy (ear tubes) 07/06/1981 myringotomy and inguinal hernia 07/06/18 84 heart ablation (arrhythmia wpw) 07/06/18 94 heart ablation 07/06/1995 forearm laceration surgery 02/03/2011 heart exploration for potential ablation 08/06/2013 septoplasty 08/06/1999 septorhinoplasty 02/03/2019 meniscus repair 01/03/2007
--- OUTSIDE RECORDS SUMMARY | 2024-12-27 00:38 | XMS_ITS | Encounter Summary ---
[facility] Address [address], [place] [address] Care Team Providers Care Theatrical Rigger Name Role Phone Sindy Coates MD Primary Care Pr ovider Encounter Details Date Type Department Care Team (Late st Contact Info) Description 12/29/2018 Correspondence External to External, Provider No address [address] Social History Tobacco Use Types Packs/Day Years [...] on filedocumented in this encounter Care Teams Theatrical Rigger Relationship Specialty Start Date End Date Sindy Coates MD [address] [place] [address] PCP - General 03/06/16 documented as of this encounter
--- OUTSIDE RECORDS SUMMARY | 2024-12-27 00:38 | XMS_ITS | Data Portability ---
Author Organization 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 [email or web address] Not available 08/04/2022 09:07:56 10/29/2022 10/29/2022 Of note a total of 30 minutes was spent: preparing to see the patient by reviewing records, images, and laboratory data; obtaining/revie wing separately obtained history; performing physical examination, counseling and educating patient/family/ caregiver; ordering appropriate medications, labs, imaging or procedures; documenting the clinical encounter; and coordination of care. [email or web address] Not available 10/28/2022 17:12:40 04/30/2023 04/30/2023 Of note a total of 20 minutes was spent: preparing to see the patient by reviewing records, images, and laboratory data; obtaining/revie wing separately obtained history; performing physical examination, counseling and educating patient/family/ caregiver; ordering appropriate medications, labs, imaging or procedures; documenting the clinical encounter; and coordination of care. [email or web address] Not available 04/30/2023 18:16:59 07/14/2024 07/14/2024 Of note a total of 20 minutes was spent: preparing to see the patient by reviewing records, images, and laboratory data; obtaining/revie wing separately obtained history; performing physical examination, counseling and educating patient/family/ caregiver; ordering appropriate medications, labs, imaging or procedures; documenting the clinical encounter; and coordination of care. [email or web address] Not available 07/04/2024 17:06:55 12/22/2024 12/22/2024 Of note a total of 20 minutes was spent: preparing to see the patient by reviewing records, images, and laboratory data; obtaining/revie wing separately obtained history; performing physical examination, counseling and educating patient/family/ caregiver; ordering appropriate medications, labs, imaging or procedures; documenting the clinical encounter; and coordination of care. [email or web address] Not available 12/21/2024 12:47:06 Plan of Treatment Reminders Order Date Submit Date Provider Last Modified By Organization Details Last Modified Time Details Appointments None recorded . Lab testoste enio, total, serum 2024 025 [facility], [address] [place] [address], [address], 5 15:15:35 estradio l, serum 2024 025 [facility], [address] [place] [address], [address], 5 15:15:34 FSH (follicl e-stimul ating hormone) , serum 2024 025 [facility], [address] [place], [address], 5 15:15:34 lh (luteini zing hormone) , serum 2024 025 [facility], [address] [place], [address], 5 15:15:34 testoste enio, total, serum - Please call to schedule pt! Thank you! [email or web address] [place] [address]- Lab, [address] [place], [address], 5 15:00:53 testoste enio, total, serum [email or web address]- Lab, [address] [place], [address], 5 13:26:06 testoste enio, total, serum 2022 023 jerald [facility], [address] [facility], [place], [address], 3 09:30:14 testoste enio, total, serum 2022 023 TAMERA [facility], [address] [facility], [place], [address], 3 17:38:25 testoste enio, total, serum 2022 023 [facility] [address] [place], [address], 3 09:17:09 hepatic function panel, serum 2022 023 [facility] [address] [place], [address], 3 09:17:10 CBC 2022 023 [facility] [address] [facility], [place], [address], 3 09:17:10 estradio l, serum 2022 023 [facility] [address] [place], [address], 3 09:17:10 Referral sexual medicine referral 2024 025 [email or web address] [facility], [address] [facility], [address], [place], [address], 14:27:52 Procedures None recorded . Surgeries None recorded . Imaging None recorded . Medication Orders clomiphe ne citrate 50 mg tablet [address], [address], 5 15:15:18 clomiphe ne citrate 50 mg tablet [address], [address], 5 10:53:28 Xyosted 50 mg/0.5 mL subcutan eous auto-inj daniel [address], [address], 3 15:12:44 Xyosted 75 mg/0.5 mL subcutan eous auto-inj daniel 20[email or web address], [address], 5 12:15:38 tadalafi l 5 mg tablet [email or web address], [address], 3 12:42:25 Xyosted 75 mg/0.5 mL subcutan eous auto-inj daniel 2022 023 [email or web address] [facility], [facility], [address], [place], [place], [id number], 5 12:15:38 Patient TargetsNo targets recorded. Patient InstructionsNo instructions recorded. Reason for Referral Sexual Medicine Referral for Hypogonadism Referring Physician: Goldy Hernández, Urology, Encounter Date: 07/14/2024 Results Created Date Observation Date Name Description Value Unit Range Abnormal Flag Note LastModifiedBy Organization Detail LastModifiedTime Result Notes None recorded. Problems Name Problem SNOMED Code Status Onset Date Resolution Date Notes Provider Name and Address Organization Details Recorded Time Atrophy of testis 30372576 Active 2024 WILLIS ESPINOZA PA-C [address] [place] [address],[address] [place] [address], [facility] 5 12:47:10 Hypogonadism 31965089 Active 2024 WILLIS ESPINOZA PA-C [address] [place] [address],[address] [place] [address], [phone], [facility] 5 12:47:10 Pelvic and perineal pain 328450605 Active 2024 WILLIS ESPINOZA PA-C [address] [place] [address],[address] [place] [address], [phone], [facility] 5 12:47:10 Primary erectile dysfunction 845774205 Active 2024 WILLIS ESPINOZA PA-C [address] [place] [address],[address] [place] [address], [phone], [facility] 5 12:47:10 Problem Notes None recorded. Procedures Surgical History Date Name Laterality Status Provider Name and Address Organization Details Recorded Time 5 COMPLEX VISIT completed Goldy Hernández MD [address] [place] [address],[address] [place] [address], [phone], [facility] 07/14/2024 13:23:12 Imaging Results None recorded. Procedure Notes None recorded. Medical Equipment None Reported. Allergies Allergen ID Allergen Name Allergen Category Reaction Reaction Severity Criticality Documentation Date Start Date Code Code System Note Provider Name and Address Organization Details Recorded Time 207453 Product containin g penicilli n (product) medicatio n rash Not available Not available 04/23/2022 01307 8001 SNOMED Farzad Franco [facility] 2 11:45:18 547367 penicilli n V Not available other Not available Not available 12/22/20242018 7984 RxNorm Pt had as a child , not sure of react ion, not sure if he has had it since Namita pierre [place] [facility] 14:50:01 Medications Name Sig Start Date Stop Date Status Note LastModified by Organization Details LastModified Time celecoxib 200 mg capsule TAKE 1 CAPSULE (200 MG) BY MOUTH 2 TIMES DAILY IF NEEDED FOR PAIN. 07/14 completed Not Available Not Available Not Available venlafaxine ER 37.5 mg capsule,ext ended release 24 hr TAKE 1 CAPSULE (37.5 MG) BY MOUTH ONCE DAILY WITH A MEAL. 07/14 completed Not Available Not Available Not Available prednisone 10 mg tablet TAKE 3 TABLETS (30 MG) BY MOUTH ONCE DAILY WITH A MEAL FOR 2 DAYS, THEN 2 TABS (20 MG) ONCE DAILY FOR 2 DAYS, THEN 1 TABLET (10MG ONCE DAILY X2 DAYS 12/22 completed Not Available Not Available Not Available trazodone 50 mg tablet TAKE 1 TABLET (50 MG) BY MOUTH AT BEDTIME IF NEEDED FOR SLEEP. 04/23 completed Not Available Not Available Not Available triamcinolo ne acetonide 0.5 % topical cream APPLY TOPICALLY TO AFFECTED AREA(S) TWO TIMES DAILY FOR 14 DAYS. 07/14 completed Not Available Not Available Not Available cetirizine 10 mg tablet TAKE 1 TABLET (10 MG) BY MOUTH ONCE DAILY. active Not Available Not Available No t Available oxybutynin chloride ER 10 mg tablet,exte nded release 24 hr TAKE 1 TABLET (10 MG) BY MOUTH ONCE DAILY. 04/23 completed Not Available Not Available Not Available azithromyci n 250 mg tablet TAKE 2 TABLETS BY MOUTH TODAY THEN 1 TABLET DAILY FOR 4 DAYS 04/23 completed Not Available Not Available Not Available clomiphene citrate 50 mg tablet Take 1 tablet every day by oral route. 2024 active Not Available Not Available Not Avai lable meloxicam 15 mg tablet TAKE 1 TABLET (15 MG) BY MOUTH ONCE DAILY. 04/23 completed Not Available Not Available Not Available hydroquinon e 4 % topical cream 1 APPLICATI ON TWICE A DAY TOPICALLY APPLY TO DARK SPOTS ON FACE 08/04 completed Not Available Not Available Not Available sertraline 100 mg tablet TAKE 1 TABLET (100 MG) BY MOUTH ONCE DAILY IN THE MORNING. 07/14 completed Not Available Not Available Not Available sulfamethox azole 800 mg-trimetho prim 160 mg tablet TAKE 1 TABLET BY MOUTH IN THE MORNING AND 1 TABLET IN THE EVENING FOR 7 DAYS 04/23 completed Not Available Not Available Not Available triamcinolo ne acetonide 0.1 % topical cream APPLY TOPICALLY TO AFFECTED AREA(S) THREE TIMES DAILY FOR 14 DAYS. 04/30 completed Not Available Not Available Not Available BD Regular Bevel [place] 18 gauge x 1 DIRECTED TO DRAW UP MEDICATIO N 10/29 completed Not Available Not Available Not Available lorazepam 0.5 mg tablet TAKE 1 TABLET (0.5 MG) BY MOUTH THREE TIMES DAILY. 04/30 completed Not Available Not Available Not Available diazepam 2 mg tablet TAKE 1 TO 2 TABLETS BY MOUTH ONCE FOR 1 DOSE PRIOR TO SCAN 04/23 completed Not Available Not Available Not Available cephalexin 500 mg capsule TAKE 1 CAPSULE (500 MG) BY MOUTH TWO TIMES DAILY FOR 7 DAYS. 12/04 completed Not Available Not Available Not Available pantoprazol e 40 mg tablet,jorge yed release TAKE 1 TABLET (40 MG) BY MOUTH ONCE DAILY. 12/22 completed Not Available Not Available Not Available triamcinolo ne acetonide 0.1 % topical ointment APPLY TOPICALLY TO AFFECTED AREA(S) THREE TIMES DAILY. 07/14 completed Not Available Not Available Not Available sertraline 25 mg tablet TAKE 1 TABLET (25 MG) BY MOUTH ONCE DAILY IN THE MORNING. FOR 2 WEEKS WITH 100 MG TO TOTAL 125 MG DAILY 07/14 completed Not Available Not Available Not Available hydrocortis one 2.5 % topical cream APPLY TOPICALLY TO AFFECTED AREA(S) 2 TIMES DAILY IF NEEDED FOR ITCHING. active Not Available Not Available No t Available montelukast 10 mg tablet TAKE 1 TABLET (10 MG) BY MOUTH AT BEDTIME. active Not Available Not Available No t Available hydroxyzine HCl 25 mg tablet TAKE 1 TABLET (25 MG) BY MOUTH AT BEDTIME. 07/14 completed Not Available Not Available Not Available mupirocin 2 % topical ointment APPLY TOPICALLY TO AFFECTED AREA(S) THREE TIMES DAILY FOR 7 DAYS. 12/04 completed Not Available Not Available Not Available testosteron e cypionate 200 mg/mL intramuscul ar oil INJECT 1 ML EVERY 2 WEEKS BY INTRAMUSC ULAR ROUTE. 10/29 completed Not Available Not Available Not Available methylpredn isolone 4 mg tablets in a dose pack TAKE BY MOUTH INSTRUCTE D PER PACKAGING . 04/23 completed Not Available Not Available Not Available propranolol 20 mg tablet TAKE 1 TABLET (20 MG) BY MOUTH TWO TIMES DAILY. 07/14 completed Not Available Not Available Not Available cefdinir 300 mg capsule TAKE 1 CAPSULE (300 MG) BY MOUTH TWO TIMES DAILY FOR 10 DAYS. 07/14 completed Not Available Not Available Not Available fluticasone propionate 50 mcg/actuati on nasal spray,suspe nsion INSTILL 2 SPRAYS TO BOTH NOSTRILS ONCE DAILY. 04/23 completed Not Available Not Available Not Available sertraline 50 mg tablet TAKE 1 AND 1/2 TABLETS BY MOUTH ONCE DAILY IN THE MORNING FOR 14 DAYS, THEN 1 TABLET ONCE DAILY IN THE MORNING FOR 14 DAYS. 07/14 completed Not Available Not Available Not Available doxycycline hyclate 100 mg tablet TAKE 1 TABLET (100 MG) BY MOUTH TWO TIMES DAILY FOR 5 DAYS. 12/04 completed Not Available Not Available Not Available tadalafil 5 mg tablet 10/29 completed Not Available Not Available Not Available BD Regular Bevel [place] 25 gauge x 5/8 DIRECTED (TO INJECT MEDICATIO N) 10/29 completed Not Available Not Available Not Available lactulose 10 gram/15 mL oral solution TAKE 15 ML (10 G) BY MOUTH ONCE DAILY. 04/30 completed Not Available Not Available Not Available sildenafil (pulmonary hypertensio n) 20 mg tablet TAKE ONE TABLET BY MOUTH ONCE DAILY NEEDED FOR SEXUAL ACTIVITY. TAKE 30 MINUTES-4 HOURS BEFORE active Not Available Not Available No t Available naltrexone 07/14 completed Not Available Not Available Not Available BD Luer-Sally Syringe 1 mL DIRECTED. 10/29 completed Not Available Not Available Not Available desvenlafax ine succinate ER 50 mg tablet,exte nded release 24 hr TAKE 1 TABLET (50 MG) BY MOUTH ONCE DAILY. active Not Available Not Available No t Available GaviLyte-G 236 gram-22.74 gram-6.74 gram-5.86 gram oral solution DRINK 2 LITERS (HALF THE BOTTLE) THE DAY BEFORE COLONOSCO PY AND 2 LITERS (REMAININ G PREP) 6 HOURS PRIOR TO COLONOSCO PY APPOINTME NT. 12/22 completed Not Available Not Available Not Available Xyosted 50 mg/0.5 mL subcutaneou s auto-inject or active Not Available Not Available Not Available Xyosted 75 mg/0.5 mL subcutaneou s auto-inject or INJECT 0.5 ML BY SUBCUTANE OUS ROUTE WEEKLY. 07/14 completed Not Available Not Available Not Available Vitals Date Recorded Body height Body mass index (BMI) Body weight Provider Name and Address Organization Details Last Updated DateTime 07/14/2024 185.42 cm 23.7 kg/m2 97336.63 g Rach Cesar [facility] 07/14/2024 12:14:26 Date Recorded Body height Body mass index (BMI) Body weight Provider Name and Address Organization Details Last Updated DateTime 08/04/2022 185.42 cm 23.7 kg/m2 62614.63 g Rach Buitrago [facility] 08/04/2022 12:22:31 Date Recorded Body height Body mass index (BMI) Body weight Provider Name and Address Organization Details Last Updated DateTime 10/29/2022 185.42 cm 23.7 kg/m2 54259.63 g Rach Buitrago [facility] 10/29/2022 12:39:13 Date Recorded Body height Body mass index (BMI) Body weight Provider Name and Address Organization Details Last Updated DateTime 12/22/2024 185.42 cm 25.1 kg/m2 71508.55 g Namita Dickens [facility] 12/22/2024 14:49:46 Date Recorded Body height Body mass index (BMI) Body weight Provider Name and Address Organization Details Last Updated DateTime 04/30/2023 185.42 cm 23.7 kg/m2 23735.63 g Rach Buitrago [facility] 04/30/2023 12:03:17 Social History Question Answer Notes LastModified by Organizat ion Details LastModified Time Tobacco Smoking Status Never Smoker Farzad pierre [facility] 04/23/2022 11:49:14 What Is Your Level Of Caffeine Consumption? Occasional Information not available 04/23/2022 Recreational Drug Use No Information not available 04/23/2022 What Was The Date Of Your Most Recent Tobacco Screening? 12/22/2024 [email or web address] Information not available 12/22/2024 What Is Your Relationship Status? Single Information not available 04/23/2022 Has Tobacco Cessation Counseling Been Provided? No Information not available 04/23/2022 Sex: Male Functional Status Question Answer Note LastModified by Organizat ion Details LastModified Time Do you use any illicit or recreational drugs? No Information not available 04/23/2022 Do you or have you ever used any other forms of tobacco or nicotine? No Information not available 04/23/2022 What is your level of alcohol consumption? None Information not available 04/23/2022 Are you currently employed? Yes Information not available 04/23/2022 Mental Status None recorded. Family History Relationship Description Onset Age of this Age Resolved Age Notes LastModified by Organization Details LastModified Time Paternal Grandmother Family history of neoplasm of ovary [email or web address] Not available 2021 11:47:44 Paternal Grandfather Family history of malignant neoplasm of prostate [email or web address] Not available 2021 11:47:58 Father Family history of cardiac disorder [email or web address] Not available 2021 11:48:10 Father Family history of Hypertension [email or web address] Not available 11:48:23 Mother Family history of diabetes mellitus [email or web address] Not available 2021 11:48:38 Medical History Condition Response Other N High Blood Pressure N Kidney Stones N Lung Disease N Depression N GERD/Acid Reflux N Sexually Transmitted Infection N Cancer N High Cholesterol N Diabetes N Bleeding Disorder N Heart Disease N Immunizations Vaccine Type Date Status Note Provider Nam e and Address Organization Details Recorded Time COVID-19, mRNA, LNP-S, bivalent, PF, 50 mcg/0.5 mL or 25mcg/0.25 mL dose 2 completed Rach pierre [place] [facility] 07/14/2024 12:15:57 Influenza, split virus, quadrivalent, PF 2 completed Rach Cesar null, [facility] 07/14/2024 12:15:57 COVID-19, mRNA, LNP-S, PF, 50 mcg/0.5 mL 3 completed Not Available [facility] 12/22/2024 14:34:49 Influenza, split virus, quadrivalent, PF 3 completed Not Available [facility] 12/22/2024 14:34:49 COVID-19, mRNA, LNP-S, PF, 50 mcg/0.5 mL 4 completed Not Available [facility] 12/22/2024 14:34:49 Influenza, split virus, trivalent, preservative 4 completed Not Available [facility] 12/22/2024 14:34:49 COVID-19, mRNA, LNP-S, PF, 100 mcg/0.5mL dose or 50 mcg/0.25mL dose 1 completed Rach Buitrago null, [facility] 04/30/2023 12:03:24 COVID-19, mRNA, LNP-S, PF, 100 mcg/0.5mL dose or 50 mcg/0.25mL dose 1 completed Rachkeysha Buitrago null, [facility] 04/30/2023 12:03:24 COVID-19, mRNA, LNP-S, PF, 100 mcg/0.5mL dose or 50 mcg/0.25mL dose 1 completed Rach Minna null, [facility] 04/30/2023 12:03:24 Tdap 2 completed Rach Minna null, [facility] 04/30/2023 12:03:24 Novel [id number]-[id number] , all formulations 9 completed Rach Minna null, [facility] 04/30/2023 12:03:24 Influenza, split virus, trivalent, preservative 3 completed Rach Minna null, [facility] 04/30/2023 12:03:24 Influenza, split virus, trivalent, preservative 8 completed Rach Minna null, [facility] 04/30/2023 12:03:24 Td (adult), 2 Lf tetanus toxoid, preservative free, adsorbed 0 completed Rach Obduliaquist null, [facility] 04/30/2023 12:03:24 Influenza, split virus, quadrivalent, PF 0 completed Rach Obduliaquist null, [facility] 04/30/2023 12:03:24 Influenza, split virus, quadrivalent, PF 5 completed Rach Obduliaquist null, [facility] 04/30/2023 12:03:24 Influenza, split virus, quadrivalent, PF 4 completed Rach Obduliashelbi null, [facility] 04/30/2023 12:03:24 Past Encounters Encounter ID Performer Location Encounter Start Date Encounter Closed Date Diagnosis/Indication Diagnosis SNOMED-CT Code Diagnosis ICD10 Code Diagnosis Note [id number] Goldy Hernández MD [facility] [address] [place] [address] 04/23/2022 11:36:00 04/28/2022 14:20:45 Hypogonadism 41632714 E29.1 -Hormone evaluation returned low, started on IM testostero ne Atrophy of testis 891016 08 N50.0 -Patient believes this was secondary to hernia operation he had.-We did discuss the role of testicular prosthesis . Pelvic and perineal pain 093281347 R10.2 -Would recommend combinatio n of meloxicam and oxybutynin . Patient does feel as though his symptoms are improving spontaneou sly though so he will hold off on starting these medication s unless his symptoms worsen.-If symptoms to recur I think you would benefit significan tly from pelvic floor physical therapy [id number] MD NILDA [facility] [address] [place] [address] 08/04/2022 12:20:58 08/08/2022 09:14:17 Hypogonadism 45005839 E29.1 - Will transition to subQ TRT given injection issues- Will check safety labs including T:E ratio Atrophy of testis 438127 08 N50.0 -Patient believes this was secondary to hernia operation he had.-We did discuss the role of testicular prosthesis . Pelvic and perineal pain 396853580 R10.2 -Would recommend combinatio n of meloxicam and oxybutynin . Patient does feel as though his symptoms are improving spontaneou sly though so he will hold off on starting these medication s unless his symptoms worsen.-If symptoms to recur I think you would benefit significan tly from pelvic floor physical therapy Primary er ectile dysfunction 589099112 N52.9 - May be related to T:E ratio, will start daily tadalafil [id number] Goldy Hernández MD [facility] [address] [place] [address] 10/29/2022 12:33:54 10/31/2022 11:37:34 Hypogonadism 20957973 E29.1 - Will transition to subQ TRT given injection issues- Will check safety labs including T:E ratio Atrophy of testis 816675 08 N50.0 -Patient believes this was secondary to hernia operation he had and now TRT-We did discuss the role of testicular prosthesis . Pelvic and perineal pain 067120210 R10.2 -Would recommend combinatio n of meloxicam and oxybutynin . Patient does feel as though his symptoms are improving spontaneou sly though so he will hold off on starting these medication s unless his symptoms worsen.-If symptoms to recur I think you would benefit significan tly from pelvic floor physical therapy Primary er ectile dysfunction 873084834 N52.9 - May be related to T:E ratio, will start daily tadalafil [id number] Goldy Hernández MD [facility] [address] [place] [address] 04/30/2023 12:01:37 05/07/2023 13:39:30 Hypogonadism 33642375 E29.1 - Will transition to subQ TRT given injection issues, he would like to decrease his dose down to 50 mg weekly- Will check safety labs including T:E ratio Atrophy of testis 277324 08 N50.0 -Patient believes this was secondary to hernia operation he had and now TRT-We did discuss the role of testicular prosthesis . Pelvic and perineal pain 023680671 R10.2 -Would recommend combinatio n of meloxicam and oxybutynin . Patient does feel as though his symptoms are improving spontaneou sly though so he will hold off on starting these medication s unless his symptoms worsen. -If symptoms to recur I think you would benefit significan tly from pelvic floor physical therapy Primary er ectile dysfunction 683751245 N52.9 - May be related to T:E ratio, will start daily tadalafil [id number] Goldy Hernández MD [facility] [address] [place] [address] 07/14/2024 11:44:17 07/18/2024 09:04:20 Hypogonadism 51448496 E29.1 - Will transition to clomiphene - Check baseline testostero ne and then repeat after 6-8 weeks of restoratoi n- Will referral to sexual medicine. Atrophy of testis 672634 08 N50.0 -Patient believes this was secondary to hernia operation he had and now TRT-We did discuss the role of testicular prosthesis . Pelvic and perineal pain 644806707 R10.2 -Would recommend combinatio n of meloxicam and oxybutynin . Patient does feel as though his symptoms are improving spontaneou sly though so he will hold off on starting these medication s unless his symptoms worsen. -If symptoms to recur I think you would benefit significan tly from pelvic floor physical therapy Primary er ectile dysfunction 634980263 N52.9 - May be related to T:E ratio, will start daily tadalafil History of orchiectomy 202000522 Z90.79 - Reports psychologi josie issue of atrophy given his solitary testis [id number] WLILIS ESPINOZA PA-C [facility] [address] [place] [id number] 12/22/2024 14:33:33 12/22/2024 15:23:54 Hypogonadism [id number] E29.1 - Will transition to clomiphene - will obtain labs- discussed other TRT options - patient interested in oral T Atrophy of testis [id number] N50.0 -Patient believes this was secondary to hernia operation he had and now TRT-We did discuss the role of testicular prosthesis . Pelvic and perineal pain [id number] R10.2 -Would recommend combinatio n of meloxicam and oxybutynin . Patient does feel as though his symptoms are improving spontaneou sly though so he will hold off on starting these medication s unless his symptoms worsen. -If symptoms to recur I think you would benefit significan tly from pelvic floor physical therapy Primary er ectile dysfunction [id number] N52.9 - May be related to T:E ratio, will start daily tadalafil History of orchiectomy [id number] Z90.79 - Reports psychologi josie issue of atrophy given his solitary testis Health Concerns Section Related Observation LastModified by Organization Detai ls LastModified Time None Recorded Concern Status LastModified by Organization Details LastModified Time None Recorded Advance Directives Directive None Recorded Payers Insurance Date Sequence Insurance Name Policy Number Policy Mckinney Covered Member ID Mckinney Member ID Guarantor Name 12/19/[address] [facility] ([place]PLAC[place] - [place]) [id number] Jan Vásquez [id number] Jan Vásquez 07/14/[address] [facility] ([place]) [id number] Jan Vásquez [id number] Jan Vásquez Notes Date Note Type Note Provider Name and Address Organization Details Recorded Time 08/04/2022 text/html Mr. Vásquez is a very pleasant 42 yo male with previously seen my partner Dr. Danielson due to history of atrophic Left testicle and low testosterone (dx in 2015). He used Androgel for a few months (Testerone improved), but he did not see a significant improvement in his energy levels and stopped it. Over the course of the last month he has had penile pain near the glans penis particularly with urination and associated with urinary urgency and pain in the lower abdomen. He denies any hematuria, frequency, nocturia, or any significant change in his symptoms. He denies any new sexual partners that would put him at risk for STI. No other changes. He was seen by his primary care physician who suspected possible prostatitis and put him on a two-week course of Bactrim however this did not change his symptoms at all. Is therefore referred today for reevaluation.Testoste enio - 153 ng (02/19/15) - Free - 36- 420 ng (03/22/15) - Free - 104- 318 ng (09/27/15)- 91 ng (11/19/16)Hgb - 14.7 (11/19/16)LH - 3.2 (09/27/15) - was on replacement at this timeFSH - 7.6Prolactin - 4.64012/04/21Patient referred back for evaluation of pelvic pain and dysfunction. 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 He has had worsening pain and discomfort in his pelvis which has manifested as varying degrees of urinary and defecation issues. He also reports significant psychological effect of his atrophied left testis. 04/23/2022:Patient referred back for evaluation of pelvic pain and dysfunction. At last appointment we discussed the use of testosterone replacement therapy given his hypogonadism. He would like to have prescription for more questions before proceeding. 08/04/2022:Here for follow up hypogonadism, pelvic and perineal pain, and new issue of erectile dysfunction. Patient reports significant increase in his libido but worsening erectile function. Has been tolerating the IM injections fairly well but has had a few painful injections and one with some significant nerve pain that had him very worried. Goldy Hernández MD [address] [facility],[address], [place], [address], [facility] 08/04/2022 12:57:24 10/29/2022 text/html Mr. Vásquez is a very pleasant 42 yo male with previously seen my partner Dr. Danielson due to history of atrophic Left testicle and low testosterone (dx in 2014). He used Androgel for a few months (Testerone improved), but he did not see a significant improvement in his energy levels and stopped it. Over the course of the last month he has had penile pain near the glans penis particularly with urination and associated with urinary urgency and pain in the lower abdomen. He denies any hematuria, frequency, nocturia, or any significant change in his symptoms. He denies any new sexual partners that would put him at risk for STI. No other changes. He was seen by his primary care physician who suspected possible prostatitis and put him on a two-week course of Bactrim however this did not change his symptoms at all. Is therefore referred today for reevaluation.Maite Reyes 153 ng (02/19/15) - Free - 36- 420 ng (03/22/15) - Free - 104- 318 ng (09/27/15)- 91 ng (11/19/16)Hgb - 14.7 (11/19/16)LH - 3.2 (09/27/15) - was on replacement at this timeFSH - 7.6Prolactin - 4.64012/04/21Patient referred back for evaluation of pelvic pain and dysfunction. 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 He has had worsening pain and discomfort in his pelvis which has manifested as varying degrees of urinary and defecation issues. He also reports significant psychological effect of his atrophied left testis. 04/23/2022:Patient referred back for evaluation of pelvic pain and dysfunction. At last appointment we discussed the use of testosterone replacement therapy given his hypogonadism. He would like to have prescription for more questions before proceeding. 08/04/2022:Here for follow up hypogonadism, pelvic and perineal pain, and new issue of erectile dysfunction. Patient reports significant increase in his libido but worsening erectile function. Has been tolerating the IM injections fairly well but has had a few painful injections and one with some significant nerve pain that had him very worried. 10/29/2022:Here for follow up hypogonadism, pelvic and perineal pain, and erectile dysfunction. Maintained on TRT, safety labs reviewed with no adverse effects seen. Reports significant psychological stress from testicular atrophy. Goldy Hernández MD [address] [facility],[address], [place], [address], [facility] 10/29/2022 13:40:37 04/30/2023 text/html Mr. Vásquez is a very pleasant 42 yo male with previously seen my partner Dr. Danielson due to history of atrophic Left testicle and low testosterone (dx in 2015). He used Androgel for a few months (Testerone improved), but he did not see a significant improvement in his energy levels and stopped it. Over the course of the last month he has had penile pain near the glans penis particularly with urination and associated with urinary urgency and pain in the lower abdomen. He denies any hematuria, frequency, nocturia, or any significant change in his symptoms. He denies any new sexual partners that would put him at risk for STI. No other changes. He was seen by his primary care physician who suspected possible prostatitis and put him on a two-week course of Bactrim however this did not change his symptoms at all. Is therefore referred today for reevaluation.Testoste enio - 153 ng (02/19/15) - Free - 36- 420 ng (03/22/15) - Free - 104- 318 ng (09/27/15)- 91 ng (11/19/16)Hgb - 14.7 (11/19/16)LH - 3.2 (09/27/15) - was on replacement at this timeFSH - 7.6Prolactin - 4.6406/07/27Patient referred back for evaluation of pelvic pain and dysfunction. 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 He has had worsening pain and discomfort in his pelvis which has manifested as varying degrees of urinary and defecation issues. He also reports significant psychological effect of his atrophied left testis. 04/23/2022:Patient referred back for evaluation of pelvic pain and dysfunction. At last appointment we discussed the use of testosterone replacement therapy given his hypogonadism. He would like to have prescription for more questions before proceeding. 08/04/2022:Here for follow up hypogonadism, pelvic and perineal pain, and new issue of erectile dysfunction. Patient reports significant increase in his libido but worsening erectile function. Has been tolerating the IM injections fairly well but has had a few painful injections and one with some significant nerve pain that had him very worried. 10/29/2022:Here for follow up hypogonadism, pelvic and perineal pain, and erectile dysfunction. Maintained on TRT, safety labs reviewed with no adverse effects seen. Reports significant psychological stress from testicular atrophy. 04/30/2023:Here for follow up hypogonadism, pelvic and perineal pain, and erectile dysfunction. Prior to conducting our telephone visit, the patient was apprised of the risks, benefits and alternatives to telephone visits including but not limited to poor audio quality, interrupted visits due to technological limitations, delays in medical evaluation and treatment due to deficiencies or failures of equipment, failure of security protocols resulting in a breach of privacy of personal medical information and a lack of access to complete medical records resulting in not fully informed. It was not possible for the patient to sign the privacy regulations, HIPAA release and assignment of benefits forms. The patient was given the opportunity to ask questions about these policies and gave verbal acknowledgement and approval of these policies as well as to hold this meeting by telephone. Lastly, the patient agreed to allowing their medication history to be pulled from a national pharmacy database to facilitate and coordinate their care. Goldy Hernández MD [address] [place] [address],[address], [place], [address], [facility] 04/30/2023 18:17:43 07/14/2024 text/html Mr. Vásquez is a very pleasant 42 yo male with previously seen my partner Dr. Danielson due to history of atrophic Left testicle and low testosterone (dx in 2014). He used Androgel for a few months (Testerone improved), but he did not see a significant improvement in his energy levels and stopped it. Over the course of the last month he has had penile pain near the glans penis particularly with urination and associated with urinary urgency and pain in the lower abdomen. He denies any hematuria, frequency, nocturia, or any significant change in his symptoms. He denies any new sexual partners that would put him at risk for STI. No other changes. He was seen by his primary care physician who suspected possible prostatitis and put him on a two-week course of Bactrim however this did not change his symptoms at all. Is therefore referred today for reevaluation.Testoste enio - 153 ng (02/19/15) - Free - 36- 420 ng (03/22/15) - Free - 104- 318 ng (09/27/15)- 91 ng (11/19/16)Hgb - 14.7 (11/19/16)LH - 3.2 (09/27/15) - was on replacement at this timeFSH - 7.6Prolactin - 4.64012/04/21Patient referred back for evaluation of pelvic pain and dysfunction. 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 He has had worsening pain and discomfort in his pelvis which has manifested as varying degrees of urinary and defecation issues. He also reports significant psychological effect of his atrophied left testis. 04/23/2022:Patient referred back for evaluation of pelvic pain and dysfunction. At last appointment we discussed the use of testosterone replacement therapy given his hypogonadism. He would like to have prescription for more questions before proceeding. 08/04/2022:Here for follow up hypogonadism, pelvic and perineal pain, and new issue of erectile dysfunction. Patient reports significant increase in his libido but worsening erectile function. Has been tolerating the IM injections fairly well but has had a few painful injections and one with some significant nerve pain that had him very worried. 10/29/2022:Here for follow up hypogonadism, pelvic and perineal pain, and erectile dysfunction. Maintained on TRT, safety labs reviewed with no adverse effects seen. Reports significant psychological stress from testicular atrophy. 04/30/2023:Here for follow up hypogonadism, pelvic and perineal pain, and erectile dysfunction. 07/14/2024:He feels he has not responded much with TRT and wonders if he should ween off testosterone at this time. He was just started on an SNRI antidepressant (venlafaxine) and noticed obvious delays in ejaculation and decreased libido. He is curious about testosterone muslim and wonders if this is affected by his change to a plant based diet. Goldy Hernández MD [address] [facility],[address], [place], [address], [facility] 07/14/2024 13:26:21 12/22/2024 text/html Mr. Vásquez is a very pleasant 42 yo male with previously seen my partner Dr. Danielson due to history of atrophic Left testicle and low testosterone (dx in 2015). He used Androgel for a few months (Testerone improved), but he did not see a significant improvement in his energy levels and stopped it. Over the course of the last month he has had penile pain near the glans penis particularly with urination and associated with urinary urgency and pain in the lower abdomen. He denies any hematuria, frequency, nocturia, or any significant change in his symptoms. He denies any new sexual partners that would put him at risk for STI. No other changes. He was seen by his primary care physician who suspected possible prostatitis and put him on a two-week course of Bactrim however this did not change his symptoms at all. Is therefore referred today for reevaluation.Testoste enio - 153 ng (02/19/15) - Free - 36- 420 ng (03/22/15) - Free - 104- 318 ng (09/27/15)- 91 ng (11/19/16)Hgb - 14.7 (11/19/16)LH - 3.2 (09/27/15) - was on replacement at this timeFSH - 7.6Prolactin - 4.640/07/2021 (Dr. Hernández):Patient referred back for evaluation of pelvic pain and dysfunction. 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 He has had worsening pain and discomfort in his pelvis which has manifested as varying degrees of urinary and defecation issues. He also reports significant psychological effect of his atrophied left testis. 04/23/2022:Patient referred back for evaluation of pelvic pain and dysfunction. At last appointment we discussed the use of testosterone replacement therapy given his hypogonadism. He would like to have prescription for more questions before proceeding. 08/04/2022:Here for follow up hypogonadism, pelvic and perineal pain, and new issue of erectile dysfunction. Patient reports significant increase in his libido but worsening erectile function. Has been tolerating the IM injections fairly well but has had a few painful injections and one with some significant nerve pain that had him very worried. 10/29/2022:Here for follow up hypogonadism, pelvic and perineal pain, and erectile dysfunction. Maintained on TRT, safety labs reviewed with no adverse effects seen. Reports significant psychological stress from testicular atrophy. 04/30/2023:Here for follow up hypogonadism, pelvic and perineal pain, and erectile dysfunction. 07/14/2024:He feels he has not responded much with TRT and wonders if he should ween off testosterone at this time. He was just started on an SNRI antidepressant (venlafaxine) and noticed obvious delays in ejaculation and decreased libido. He is curious about testosterone muslim and wonders if this is affected by his change to a plant based diet. 12/22/2024 (Sida):Here for follow up on hypogonadism, pelvic/perineal pain, ED. Was started on clomid at last office visit. He is unsure if this is working. He has previously tried TRT (xyosted) without much improvements either. His biggest symptoms were decreased energy, slow muscle mass growth and libido. WILLIS ESPINOZA PA-C [address] [place] [address],[facility] [address], [place], [address], [facility] 12/22/2024 15:24:57
--- OUTSIDE RECORDS SUMMARY | 2024-12-27 00:38 | XMS_ITS | Continuity of Care Document ---
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 Lab testostero ne, total, serum 2024 025 [facility], [address] [place], [address], 5 15:15:35 estradiol, serum 2024 025 [facility], [address] [place], [address], 5 15:15:34 FSH (follicle- stimulatin g hormone), serum 2024 025 [facility], [address] [place], [address], 5 15:15:34 lh (luteinizi ng hormone), serum 2024 025 [facility], [address] [place], [address], 5 15:15:34 Referral None recorded. Procedures None recorded. Surgeries None recorded. Imaging None recorded. Medication Orders clomiphene citrate 50 mg tablet 2024 025 [facility], [address] [place], [address], 15:15:18 Patient TargetsNo targets recorded. Patient InstructionsNo instructions recorded. Reason for Referral None Reported. Problems Name Problem SNOMED Code Status Onset Date Resolution Date Notes Provider Name and Address Organization Details Recorded Time Atrophy of testis 58870151 Active 2024 WILLIS ESPINOZA PA-C [address] [facility],[address] [place] [address], [phone], [facility] 5 12:47:10 Hypogonadism 66147405 Active 2024 WILLIS ESPINOZA PA-C [address] [facility],[address] [place] [address], [phone], [facility] 5 12:47:10 Pelvic and perineal pain 132476151 Active 2024 WILLIS ESPINOZA PA-C [address] [facility],[address] [place] [address], [phone], [facility] 5 12:47:10 Primary erectile dysfunction 673565872 Active 2024 WILLIS ESPINOZA PA-C [address] [facility],[address], [place], [address], [facility] 5 12:47:10 Problem Notes None recorded. Procedures Surgical History Date Name Laterality Status Provider Name and Address Organization Details Recorded Time 5 COMPLEX VISIT completed Goldy Hernández MD [address] [facility],[address], [place], [address], [facility] 07/14/2024 13:23:12 Imaging Results None recorded. Procedure Notes None recorded. Medical Equipment None Reported. Allergies Allergen ID Allergen Name Allergen Category Reaction Reaction Severity Criticality Documentation Date Start Date Code Code System Note Provider Name and Address Organization Details Recorded Time 781904 Product containin g penicilli n (product) medicatio n rash Not available Not available 04/23/2022 00407 8001 SNOMED Farzad Franco [facility] 2 11:45:18 681628 penicilli n V Not available other Not available Not available 12/22/20242018 7984 RxNorm Pt had as a child , not sure of react ion, not sure if he has had it since Namita Dickens [facility] 5 14:50:01 Medications Name Sig Start Date Stop [...] Not Available Not Available BD Regular Bevel [place] 18 gauge x 1 DIRECTED TO DRAW [...] Not Available Not Available BD Regular Bevel [place] 25 gauge x 5/8 DIRECTED (TO INJECT [...] Updated DateTime 12/22/2024 185.42 cm 25.1 kg/m2 23711.55 g Namita Dickens [facility] 12/22/2024 14:49:46 Social History Question Answer Notes LastModified by PostRocket Details LastModified Time Tobacco Smoking Status Never Smoker [facility] 04/23/2022 11:49:14 What Is Your Level Of Caffeine Consumption? Occasional Information not available 04/23/2022 Recreational Drug Use No Information not available 04/23/2022 What Was The Date Of Your Most Recent Tobacco Screening? 12/22/2024 [email or web address] Information not available 12/22/2024 What Is Your [...] High Blood Pressure N Kidney Stones N Depression N Lung Disease N GERD/Acid Reflux N Sexually Transmitted Infection N Cancer N High Cholesterol N Diabetes N Bleeding Disorder N Heart Disease N Immunizations Vaccine Type Date Status Note Provider Nam e and Address Organization Details Recorded Time COVID-19, mRNA, LNP-S, bivalent, PF, 50 mcg/0.5 mL or 25mcg/0.25 mL dose 2 completed Rach pierre [facility] 07/14/2024 12:15:57 Influenza, split virus, quadrivalent, PF 2 completed Rach pierre [facility] 07/14/2024 12:15:57 COVID-19, mRNA, LNP-S, PF, 50 mcg/0.5 mL 3 completed Not Available [facility] 12/22/2024 14:34:49 Influenza, split virus, quadrivalent, PF 3 completed Not Available [facility] 12/22/2024 14:34:49 COVID-19, mRNA, LNP-S, PF, 50 mcg/0.5 mL 4 completed Not Available [facility] 12/22/2024 14:34:49 Influenza, split virus, trivalent, preservative 4 completed Not Available [facility] 12/22/2024 14:34:49 COVID-19, mRNA, LNP-S, PF, 100 mcg/0.5mL dose or 50 mcg/0.25mL dose 1 completed Rach Stromquist null, [facility] 04/30/2023 12:03:24 COVID-19, mRNA, LNP-S, PF, 100 mcg/0.5mL dose or 50 mcg/0.25mL dose 1 completed Rach Stromquist null, [facility] 04/30/2023 12:03:24 COVID-19, mRNA, LNP-S, PF, 100 mcg/0.5mL dose or 50 mcg/0.25mL dose 1 completed Rach Stromquist null, [facility] 04/30/2023 12:03:24 Tdap 2 completed Rach Stromquist null, [facility] 04/30/2023 12:03:24 Novel [id number] , all formulations 9 completed Rach Stromquist null, [facility] 04/30/2023 12:03:24 Influenza, split virus, trivalent, preservative 3 completed Rach Stromquist null, [facility] 04/30/2023 12:03:24 Influenza, split virus, trivalent, preservative 8 completed Rach Stromquist null, [facility] 04/30/2023 12:03:24 Td (adult), 2 Lf tetanus toxoid, preservative free, adsorbed 0 completed Rach Stromquist null, [facility] 04/30/2023 12:03:24 Influenza, split virus, quadrivalent, PF 0 completed Rach Stromquist null, [facility] 04/30/2023 12:03:24 Influenza, split virus, quadrivalent, PF 5 completed Rach Stromquist null, [facility] 04/30/2023 12:03:24 Influenza, split virus, quadrivalent, PF 11/12/201 4 completed Rach Stromquist null, [place] [facility] 04/30/2023 12:03:24 Past Encounters Encounter ID Performer Location Encounter Start Date Encounter Closed Date Diagnosis/Indication Diagnosis SNOMED-CT Code Diagnosis ICD10 Code Diagnosis Note [id number] WILLIS ESPINOZA PA-C [facility] [address] [place] [phone] 12/22/2024 14:33:33 12/22/2024 15:23:54 Hypogonadism 34711190 E29.1 - Will transition to clomiphene - will obtain labs- discussed other TRT options - patient interested in oral T Atrophy of testis 249329 08 N50.0 -Patient believes this was secondary to hernia operation he had and now TRT-We did discuss the role of testicular prosthesis . Pelvic and perineal pain 327875041 R10.2 -Would recommend combinatio n of meloxicam and oxybutynin . Patient does feel as though his symptoms are improving spontaneou sly though so he will hold off on starting these medication s unless his symptoms worsen. -If symptoms to recur I think you would benefit significan tly from pelvic floor physical therapy Primary er ectile dysfunction 177174549 N52.9 - May be related to T:E ratio, will start daily tadalafil History of orchiectomy 876019470 Z90.79 - Reports psychologi josie issue of atrophy given his solitary testis Health Concerns Section Related Observation LastModified by Organization Detai ls LastModified Time None Recorded Concern Status LastModified by Organization Details LastModified Time None Recorded Payers Encounter Date Sequence Insurance Name Policy Number Policy Mckinney Covered Member ID Mckinney Member ID Guarantor Name 12/22/2024 1 [id number] - [place]MO) [id number] Jan Vásquez [id number] Jan Vásquez Notes Date Note Type Note Provider Name and Address Organization Details Recorded Time 12/22/2024 text/html Mr. Vásquez is a very [...] at all. Is therefore referred today for reevaluation.Testost erone - 153 ng (02/19/15) - Free - 36- 420 ng (03/22/15) - Free - 104- 318 ng (09/27/15)- 91 ng (11/19/16)Hgb - 14.7 (11/19/16)LH - 3.2 (09/27/15) - was on replacement at this timeFSH - 7.6Prolactin - 4.6406/07/2021 (Dr. Hernández):Patient referred back for evaluation of [...] decreased libido. He is curious about testosterone scientology and wonders if this is affected by his change to a plant based diet. 12/22/2024 (Willis):Here for follow up on hypogonadism, pelvic/perineal pain, ED. Was started on clomid at last office visit. He is unsure if this is working. He has previously tried TRT (xyosted) without much improvements either. His biggest symptoms were decreased energy, slow muscle mass growth and libido. WILLIS ESPINOZA PA-C [address] [facility],[address], [place], [address], [facility] 12/22/2024 15:24:57
--- OUTSIDE RECORDS SUMMARY | 2024-12-27 00:38 | XMS_ITS | Data Portability ---
Author Organization [facility], [facility] Address [address] [place] [address] [address] [place] [address] Care Team Providers Care Mobility Specialist Name Role Phone AUREA MADRIGAL Primary Care Provider [phone] Assessment Encounter Date Assessment Date Assessment LastModified [...] the clinical encounter; and coordination of care. [email or web address] Not available 07/04/2024 17:06:55 12/22/2024 12/22/2024 Of [...] Lab testoste enio, total, serum 2024 025 [facility] [place] [facility], [address] [place] [address], [address], 5 15:15:35 estradio l, serum 2024 025 [facility] [place] [facility], [address] [place] [address], [address], 5 15:15:34 FSH (follicl e-stimul ating hormone) , serum 2024 025 [facility] [place] [facility], [address] [place], [address], 5 15:15:34 lh (luteini zing hormone) , serum 2024 025 [facility] [place] [facility], [address] [place], [address], 5 15:15:34 testoste enio, total, serum - Please call to schedule pt! Thank you! [email or web address] [place] [address]- Lab, [address] [place], [address], 5 15:00:53 testoste enio, total, serum [email or web address]- Lab, [address] [place], [address], 5 13:26:06 testoste enio, total, serum 2022 023 jerald [facility], [address] [facility], [place], [address], 3 09:30:14 testoste enio, total, serum 2022 023 TAMERA [facility], [address] [facility], [place], [address], 3 17:38:25 testoste enio, total, serum 2022 023 [facility] [address] [place], [address], 3 09:17:09 hepatic function panel, serum 2022 023 [facility] [address] [place], [address], 3 09:17:10 CBC 2022 023 [facility], [address] [facility], [place], [address], 3 09:17:10 estradio l, serum 2022 023 [facility], [address] [place], [address], 3 09:17:10 Referral sexual medicine referral 2024 025 alyce [facility], [address] [facility], [address], [place], [address], 14:27:52 Procedures None recorded . Surgeries None recorded . Imaging None recorded . Medication Orders clomiphe ne citrate 50 mg tablet [address], [address], 5 15:15:18 clomiphe ne citrate 50 mg tablet [address], [address], 5 10:53:28 Xyosted 50 mg/0.5 mL subcutan eous auto-inj daniel [address], [address], 3 15:12:44 Xyosted 75 mg/0.5 mL subcutan eous auto-inj daniel 2022 [email or web address], [address], 5 12:15:38 tadalafi l 5 mg tablet 2022 [email or web address], [address], 3 12:42:25 Xyosted 75 mg/0.5 mL subcutan eous auto-inj daniel 2022 023 [email or web address] [facility], [facility], [address], [place], [place], [id number], 5 12:15:38 Patient TargetsNo targets recorded. Patient [...] Organization Details Recorded Time Atrophy of testis 55696579 Active 2024 WILLIS ESPINOZA PA-C [address] [place] [address],[address] [place] [address], [facility] 5 12:47:10 Hypogonadism 19441832 Active 2024 WILLIS ESPINOZA PA-C [address] [place] [address],[address] [place] [address], [phone], [facility] 5 12:47:10 Pelvic and perineal pain 157237096 Active 2024 WILLIS ESPINOZA PA-C [address] [place] [address],[address] [place] [address], [phone], [facility] 5 12:47:10 Primary erectile dysfunction 460543718 Active 2024 WILLIS ESPINOZA PA-C [address] [place] [address],[address] [place] [address], [phone], [facility] 5 12:47:10 Problem Notes None recorded. Procedures Surgical History Date Name Laterality Status Provider Name and Address Organization Details Recorded Time 5 COMPLEX VISIT completed Goldy Hernández MD [address] [place] [address],[address] [place] [address], [phone], [facility] 07/14/2024 13:23:12 Imaging Results None recorded. Procedure Notes None recorded. Medical Equipment None Reported. Allergies Allergen ID Allergen Name Allergen Category Reaction Reaction Severity Criticality Documentation Date Start Date Code Code System Note Provider Name and Address Organization Details Recorded Time 077948 Product containin g penicilli n (product) medicatio n rash Not available Not available 04/23/2022 48466 8001 SNOMED Farzad Franco [facility] 2 11:45:18 999603 penicilli n V Not available other Not available Not available 12/22/20242018 7984 RxNorm Pt had as a child , not sure of react ion, not sure if he has had it since Namita pierre [place] [facility] 14:50:01 Medications Name Sig Start Date [...] Not Available Not Available BD Regular Bevel [place] 18 gauge x 1 DIRECTED TO DRAW [...] Not Available Not Available BD Regular Bevel [place] 25 gauge x 5/8 DIRECTED (TO INJECT [...] Updated DateTime 07/14/2024 185.42 cm 23.7 kg/m2 44387.63 g Rach Cesar [facility] 07/14/2024 12:14:26 Date Recorded Body height Body mass index (BMI) Body weight Provider Name and Address Organization Details Last Updated DateTime 08/04/2022 185.42 cm 23.7 kg/m2 29991.63 g Rach Buitrago [facility] 08/04/2022 12:22:31 Date Recorded Body height Body mass index (BMI) Body weight Provider Name and Address Organization Details Last Updated DateTime 10/29/2022 185.42 cm 23.7 kg/m2 08187.63 g Rach Buitrago [facility] 10/29/2022 12:39:13 Date Recorded Body height Body mass index (BMI) Body weight Provider Name and Address Organization Details Last Updated DateTime 12/22/2024 185.42 cm 25.1 kg/m2 34452.55 g Namita Dickens [facility] 12/22/2024 14:49:46 Date Recorded Body height Body mass index (BMI) Body weight Provider Name and Address Organization Details Last Updated DateTime 04/30/2023 185.42 cm 23.7 kg/m2 44208.63 g Rach Buitrago [facility] 04/30/2023 12:03:17 Social History Question Answer Notes LastModified by Organizat ion Details LastModified Time Tobacco Smoking Status Never Smoker Farzad pierre [facility] 04/23/2022 11:49:14 What Is Your Level Of Caffeine Consumption? Occasional Information not available 04/23/2022 Recreational Drug Use No Information not available 04/23/2022 What Was The Date Of Your Most Recent Tobacco Screening? 12/22/2024 [email or web address] Information not available 12/22/2024 What Is Your [...] 25mcg/0.25 mL dose 2 completed Rach pierre [place] [facility] 07/14/2024 12:15:57 Influenza, split virus, quadrivalent, PF 2 completed Rach Cesar null, [facility] 07/14/2024 12:15:57 COVID-19, mRNA, LNP-S, PF, 50 mcg/0.5 mL 3 completed Not Available [facility] 12/22/2024 14:34:49 Influenza, split virus, quadrivalent, PF 3 completed Not Available [facility] 12/22/2024 14:34:49 COVID-19, mRNA, LNP-S, PF, 50 mcg/0.5 mL 4 completed Not Available [facility] 12/22/2024 14:34:49 Influenza, split virus, trivalent, preservative 4 completed Not Available [facility] 12/22/2024 14:34:49 COVID-19, mRNA, LNP-S, PF, 100 mcg/0.5mL dose or 50 mcg/0.25mL dose 1 completed Rach Buitrago null, [facility] 04/30/2023 12:03:24 COVID-19, mRNA, LNP-S, PF, 100 mcg/0.5mL dose or 50 mcg/0.25mL dose 1 completed Rachkeysha Buitrago null, [facility] 04/30/2023 12:03:24 COVID-19, mRNA, LNP-S, PF, 100 mcg/0.5mL dose or 50 mcg/0.25mL dose 1 completed [facility]ach Minna null, [facility] 04/30/2023 12:03:24 Tdap 2 completed Rach Minna null, [facility] 04/30/2023 12:03:24 Novel [id number] , all formulations 9 completed Rach Minna null, [facility] 04/30/2023 12:03:24 Influenza, split virus, trivalent, preservative 3 completed Rach Minna null, [facility] 04/30/2023 12:03:24 Influenza, split virus, trivalent, preservative 8 completed Rach Minna null, [facility] 04/30/2023 12:03:24 Td (adult), 2 Lf tetanus toxoid, preservative free, adsorbed 0 completed Rach Obduliaquist null, [facility] 04/30/2023 12:03:24 Influenza, split virus, quadrivalent, PF 0 completed Rach Obduliaquist null, [facility] 04/30/2023 12:03:24 Influenza, split virus, quadrivalent, PF 5 completed Rach Obduliaquist null, [facility] 04/30/2023 12:03:24 Influenza, split virus, quadrivalent, PF 4 completed Rach Obduliashelbi null, [facility] 04/30/2023 12:03:24 Past Encounters Encounter ID Performer Location Encounter Start Date Encounter Closed Date Diagnosis/Indication Diagnosis SNOMED-CT Code Diagnosis ICD10 Code Diagnosis Note [id number] Goldy Hernández MD [facility] [address] [place] [address] 04/23/2022 11:36:00 04/28/2022 14:20:45 Hypogonadism 05224879 E29.1 -Hormone evaluation returned low, started on IM testostero ne Atrophy of testis 583630 08 N50.0 -Patient believes this was secondary to hernia operation he had.-We did discuss the role of testicular prosthesis . Pelvic and perineal pain 153168110 R10.2 -Would recommend combinatio n of meloxicam and oxybutynin . Patient does feel as though his symptoms are improving spontaneou sly though so he will hold off on starting these medication s unless his symptoms worsen.-If symptoms to recur I think you would benefit significan tly from pelvic floor physical therapy [id number] MD NILDA [facility] [address] [place] [address] 08/04/2022 12:20:58 08/08/2022 09:14:17 Hypogonadism 55447110 E29.1 - Will transition to subQ TRT given injection issues- Will check safety labs including T:E ratio Atrophy of testis 012861 08 N50.0 -Patient believes this was secondary to hernia operation he had.-We did discuss the role of testicular prosthesis . Pelvic and perineal pain 449820483 R10.2 -Would recommend combinatio n of meloxicam and oxybutynin . Patient does feel as though his symptoms are improving spontaneou sly though so he will hold off on starting these medication s unless his symptoms worsen.-If symptoms to recur I think you would benefit significan tly from pelvic floor physical therapy Primary er ectile dysfunction 197462071 N52.9 - May be related to T:E ratio, will start daily tadalafil [id number] Goldy Hernández MD [facility] [address] [place] [address] 10/29/2022 12:33:54 10/31/2022 11:37:34 Hypogonadism 97996974 E29.1 - Will transition to subQ TRT given injection issues- Will check safety labs including T:E ratio Atrophy of testis 282429 08 N50.0 -Patient believes this was secondary to hernia operation he had and now TRT-We did discuss the role of testicular prosthesis . Pelvic and perineal pain 492688508 R10.2 -Would recommend combinatio n of meloxicam and oxybutynin . Patient does feel as though his symptoms are improving spontaneou sly though so he will hold off on starting these medication s unless his symptoms worsen.-If symptoms to recur I think you would benefit significan tly from pelvic floor physical therapy Primary er ectile dysfunction 664440341 N52.9 - May be related to T:E ratio, will start daily tadalafil [id number] Goldy Hernández MD [facility] [address] [place] [address] 04/30/2023 12:01:37 05/07/2023 13:39:30 Hypogonadism 89816589 E29.1 - Will transition to subQ TRT given injection issues, he would like to decrease his dose down to 50 mg weekly- Will check safety labs including T:E ratio Atrophy of testis 692348 08 N50.0 -Patient believes this was secondary to hernia operation he had and now TRT-We did discuss the role of testicular prosthesis . Pelvic and perineal pain 115938365 R10.2 -Would recommend combinatio n of meloxicam and oxybutynin . Patient does feel as though his symptoms are improving spontaneou sly though so he will hold off on starting these medication s unless his symptoms worsen. -If symptoms to recur I think you would benefit significan tly from pelvic floor physical therapy Primary er ectile dysfunction 646406059 N52.9 - May be related to T:E ratio, will start daily tadalafil [id number] Goldy Hernández MD _[place] [address] [place] [address] 07/14/2024 11:44:17 07/18/2024 09:04:20 Hypogonadism 61106444 E29.1 - Will transition to clomiphene - Check baseline testostero ne and then repeat after 6-8 weeks of restoratoi n- Will referral to sexual medicine. Atrophy of testis 400086 08 N50.0 -Patient believes this was secondary to hernia operation he had and now TRT-We did discuss the role of testicular prosthesis . Pelvic and perineal pain 214182003 R10.2 -Would recommend combinatio n of meloxicam and oxybutynin . Patient does feel as though his symptoms are improving spontaneou sly though so he will hold off on starting these medication s unless his symptoms worsen. -If symptoms to recur I think you would benefit significan tly from pelvic floor physical therapy Primary er ectile dysfunction 120809501 N52.9 - May be related to T:E ratio, will start daily tadalafil History of orchiectomy 613186790 Z90.79 - Reports psychologi josie issue of atrophy given his solitary testis [id number] WILLIS ESPINOZA PA-C [facility] [address] [place] [address] 12/22/2024 14:33:33 12/22/2024 15:23:54 Hypogonadism 32284310 E29.1 - Will transition to clomiphene - will obtain labs- discussed other TRT options - patient interested in oral T Atrophy of testis 027599 08 N50.0 -Patient believes this was secondary to hernia operation he had and now TRT-We did discuss the role of testicular prosthesis . Pelvic and perineal pain 192528838 R10.2 -Would recommend combinatio n of meloxicam and oxybutynin . Patient does feel as though his symptoms are improving spontaneou sly though so he will hold off on starting these medication s unless his symptoms worsen. -If symptoms to recur I think you would benefit significan tly from pelvic floor physical therapy Primary er ectile dysfunction 987047608 N52.9 - May be related to T:E ratio, will start daily tadalafil History of orchiectomy 637719913 Z90.79 - Reports psychologi josie issue of atrophy given his solitary testis Health Concerns Section Related Observation LastModified by Organization Detai ls LastModified Time None Recorded Concern Status LastModified by Organization Details LastModified Time None Recorded Advance Directives Directive None Recorded Payers Insurance Date Sequence Insurance Name Policy Number Policy Mckinney Covered Member ID Mckinney Member ID Guarantor Name 12/19/2024 1 [facility] (MEDICAID REPLACEMENT - HMO) [id number] Jan Vásquez [id number] Jan Vásquez 07/14/2024 1 [facility] (MEDICAID REPLACEMENT - HMO) [id number] Jan Vásquez [id number] Jan Vásquez Notes Date Note Type [...] him very worried. Goldy Hernández MD [address] [facility],[address], [place], [address], [facility] 08/04/2022 12:57:24 10/29/2022 text/html Mr. Vásquez [...] from testicular atrophy. Goldy Hernández MD [address] [facility],[address], [place], [address], [facility] 10/29/2022 13:40:37 04/30/2023 text/html Mr. Vásquez [...] and coordinate their care. Goldy Hernández MD [address] [place] [address],[address], [place], [address], [facility] 04/30/2023 18:17:43 07/14/2024 text/html Mr. Vásquez [...] decreased libido. He is curious about testosterone latter day and wonders if this is affected by his change to a plant based diet. Goldy Hernández MD [address] [facility],[address], [place], [address], [facility] 07/14/2024 13:26:21 12/22/2024 text/html Mr. Vásquez [...] decreased libido. He is curious about testosterone latter day and wonders if this is affected by his change to a plant based diet. 12/22/2024 (Sida):Here for follow up on hypogonadism, pelvic/perineal pain, ED. Was started on clomid at last office visit. He is unsure if this is working. He has previously tried TRT (xyosted) without much improvements either. His biggest symptoms were decreased energy, slow muscle mass growth and libido. WILLIS ESPNIOZA PA-C [address] [place] [address],[facility] [address], [address], [facility] 12/22/2024 15:24:57
--- OUTSIDE RECORDS SUMMARY | 2024-12-27 00:38 | XMS_ITS | Encounter Summary ---
Author Organization [facility] Address [address], [place] [address] Care Team Providers Care Tool Operator Name Role Phone Sindy Coates MD Primary Care Pr ovider Encounter Details Date Type Department Care Team (Late st Contact Info) Description 05/14/2017 Scanned History External to Transferred Record, Provider [facility] Social History Tobacco Use Types Packs/Day Years Used Date Smoking Tobacco: Never Assessed Sex and Gender Information Value Date Recorded Sex Assigned at Not on file Legal Sex Male 5:53 AM CDT Gender Identity Not on file Sexual Orientation Not on file documented as of this encounter Plan of Treatment Not on file documented as of this encounter Visit Diagnoses Not on filedocumented in this encounter Care Teams Tool Operator Relationship Specialty Start Date End Date Sindy Coates MD [address] [place] [address] PCP - General 03/06/16 documented as of this encounter
[2024-12-27 13:47] LABS: Follicle Stimulating Hormone 47.3 IU/L (1.5-12.4); Luteinizing Hormone, Serum 33.9 IU/L (1.7-8.6); Testosterone, Adult Male 288 ng/dL (300-890)
[2024-12-29 17:34] LABS: Estradiol by TMS 20.2 pg/mL (10.0-42.0)
== END 2024-12-26 09:30 | disposition home or self-care (01) ==
LOC: LAB 09:31
PROVIDERS: PCP Family Medicine; Visit Provider Physician Assistant
DX: E29.1 Testicular hypofunction (principal)
CPT/HCPCS: 36415; 82670; 83001; 83002; 84403

== ENCOUNTER 2025-03-08 12:51 | Outpatient (CLI) | payer BC, SELFPAY ==
--- NOTE | 2025-03-08 13:00 | CRLHL7_ITS ---
For Patients: As a result of the Century Cures Act, medical imaging exams and procedure reports are released immediately into your electronic medical record. You may view this report before your referring provider. If you have questions, please contact your health care provider. Indication: CHRONIC SINUSITIS, PRESSURE ABOVE EYEBROWS Technique: Performed without IV contrast Comparison: 04/17/2017 Findings: Frontal sinuses: Clear. Ethmoid sinuses: Mild mucosal thickening within the right posterior ethmoid air cells, chronic. Left ethmoid air cells are clear. Maxillary sinuses: Minimal mucosal thickening inferiorly with small mucous retention cysts, chronic. The maxillary sinus drainage pathways are patent on both sides. Sphenoid sinuses: Anterior mucosal thickening. Patent sinus drainage pathway on the left and partial occlusion of the right-sided sphenoethmoidal recess. Nasal Cavity: Rightward curvature of the nasal septum. Atrophy of the right-sided turbinate mucosa. Paradoxical turn of the left middle turbinate with marko bullosa. Nodularity of the left inferior turbinate mucosa. No TMJ abnormalities identified. The visualized portions of the orbits, intracranial contents and upper soft tissue neck are grossly negative. Impression: 1. Mild bilateral sinus disease. 2. Rightward curvature nasal septum. Please note that all CT scans at this facility use dose modulation, iterative reconstruction, and/or weight-based dosing when appropriate to reduce radiation dose to as low as reasonably achievable. Dictated by Elijah Lanza MD @ 03/08/2025 2:35:23 PM (Electronically Signed)
== END 2025-03-08 12:52 | disposition home or self-care (01) ==
LOC: CT 12:51
PROVIDERS: PCP Family Medicine; Visit Provider Otolaryngology
DX: J32.9 Chronic sinusitis, unspecified (principal); J34.2 Deviated nasal septum
CPT/HCPCS: 70486

== ENCOUNTER 2025-04-13 10:37 | Outpatient (CLI) | payer BC, SELFPAY ==
--- NOTE | 2025-04-13 11:00 | CRLHL7_ITS ---
For Patients: As a result of the Century Cures Act, medical imaging exams and procedure reports are released immediately into your electronic medical record. You may view this report before your referring provider. If you have questions, please contact your health care provider. INDICATION: Throat pain. COMPARISON: None. TECHNIQUE: CT soft tissue neck with IV contrast. Height CVC 70, 95 cc IV. FINDINGS: Normal bilateral parotid and submandibular glands. Normal thyroid gland. No enlarged cervical lymph nodes bilaterally. No supraclavicular superior mediastinal adenopathy. Nasopharynx and oropharynx are clear. No inflammation within the paravertebral fat pads or retropharyngeal space. Normal thickness of the epiglottis. No elongation of the styloid processes. Normal glottis nodule vocal cords. There is notable inward hooked appearance of the left superior thyroid cornu (series 3, image 49). Airway is patent. Lung apices are clear. Normal alignment the cervical spine. No prevertebral soft tissue swelling. Visualized paranasal sinuses mastoid air cells are clear. IMPRESSION: 1. No adenopathy 2. Asymmetric inward hooked appearance of the left superior thyroid cornu. Findings nonspecific but can be seen with superior thyroid cornu syndrome which may present with dysphagia. 3. No prevertebral soft tissue swelling Please note that all CT scans at this facility use dose modulation, iterative reconstruction, and/or weight-based dosing when appropriate to reduce radiation dose to as low as reasonably achievable. Dictated by Erik Zamudio MD @ 04/15/2025 6:56:28 AM (Electronically Signed)
== END 2025-04-13 10:38 | disposition home or self-care (01) ==
LOC: CT 10:37
PROVIDERS: PCP Family Medicine; Visit Provider Otolaryngology
DX: R07.0 Pain in throat (principal)
CPT/HCPCS: 70491; Q9967